=== PATIENT | female | born 1945 | race Caucasian/White ===

== ENCOUNTER 2016-08-18 12:38 | Emergency (ER) | payer MEDICARE ==
[2016-08-18] MEDS ORDERED: MECLIZINE 25 MG TABLET PO ONE (13:01)
[2016-08-18] MEDS ORDERED: IBUPROFEN 400 MG TABLET PO ONE (13:02)
--- NOTE | 2016-08-18 13:07 | Emergency Department Record ---
History of Present Illness - General Chief Complaint: Fall Injury Stated Complaint: dizzy Time Seen by Provider: 08/18/16 12:47 Source: Patient Mode of Arrival: EMS Limitations: No limitations - History of Present Illness Initial Comments: The patient is here due to falling at home an hour ago. She states she has a chronic problem with dizziness and was hurrying to leave her house and was getting dressed to fast when she developed dizziness. It felt like the room was spinning and she then fell backwards onto the edge of her shower door runner injuring her low back. She states she has a long hx of dizziness like this and now it is gone. There was no head injury or trauma and she basically fell down on her buttocks landing on the runner. She denies any GARCIA, CP, SOB, AP, nausea, vomiting, or blurred vision. She takes no anticoagulants. 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 Place Fall Occurred: Home Loss of Consciousness: None Prolonged Down Time?: No Symptoms Prior to Fall: None Severity: Moderate Severity scale (1-10): 8 Quality: Sharp Context: Other Associated Symptoms: Denies - Related Data Home Medications Medication Instructions Recorded Confirmed Last Taken Bupropion HCl [Bupropion HCl Sr] 100 mg PO DAILY 11/08/13 08/18/16 03/06/15 Escitalopram Oxalate [Lexapro] 20 mg PO DAILY 11/08/13 08/18/16 03/06/15 Lansoprazole 30 mg PO DAILY 11/08/13 08/18/16 03/06/15 Ropinirole HCl 0.5 mg PO QHS 11/08/13 08/18/16 03/06/15 Levothyroxine Sodium 250 mcg PO DAILY 12/09/13 08/18/16 03/06/15 Insulin Glargine,Hum.rec.anlog 72 units SQ QHS 03/07/15 08/18/16 03/06/15 [Lantus] Allopurinol [Zyloprim] 100 mg PO DAILY 03/24/16 08/18/16 Unknown Insulin Aspart [Novolog Flexpen] 0 unit SQ ASDIR 03/24/16 08/18/16 Unknown Vit C/Vit E AC/Lut/Copper/Zinc 1 tab PO DAILY 03/24/16 08/18/16 Unknown [PreserVision Lutein Softgel] Previous Rx's Medication Instructions Recorded Amlodipine Besylate [Norvasc] 10 mg PO DAILY #60 tab 03/13/15 Lisinopril/Hydrochlorothiazide 1 each PO DAILY #30 tablet 03/13/15 [Lisinopril-Hctz 20-12.5 mg Tab] Meclizine HCl [Antivert] 25 mg PO Q8H PRN #30 tablet 03/13/15 Allergies Allergy/AdvReac Type Severity Reaction Status Date / Time acetaminophen [ACETAMINOPHEN] Allergy Unknown PT UNSURE Verified 03/24/16 13:07 OF REACTION cephalexin Allergy Unknown PT UNSURE Verified 03/24/16 13:07 OF REACTION ciprofloxacin Allergy Unknown PT UNSURE Verified 03/24/16 13:07 OF REACTION Iodinated Contrast Media - Allergy Unknown PT UNSURE Verified 03/24/16 13:07 Oral and OF REACTION Travel Screening - Travel/Exposure Within Last 30 Days Have you traveled within the last 30 days?: No Review of Systems Constitutional: Denies: Chills, Fever Eyes: Denies: Eye discharge ENT: Denies: Congestion Respiratory: Denies: Cough, Dyspnea Past Medical History - SOCIAL HISTORY Smoking Status: Never smoker Alcohol Use: None Drug Use: None - RESPIRATORY Hx Respiratory Disorders: Yes Hx Asthma: Yes (No medication) Hx Bronchitis: Yes Hx Pulmonary Embolism: No (Mother from [place]) Hx Sleep Apnea: Yes Comment:: Does not wish to use her CPAP while sick - CARDIOVASCULAR Hx Cardio Disorders: Yes Hx Hypertension: Yes - NEURO Hx Neuro Disorders: Yes Hx Brain Tumor: Yes (Dec 22, 1999) Hx Dizziness: Yes Hx Neuropathy: No - GI Hx GI Disorders: Yes Hx Reflux: Yes - Hx Genitourinary Disorders: Yes Hx Bladder Problem: Yes Hx Kidney Stones: Yes Hx UTI: Yes Comment:: urgency - ENDOCRINE Hx Endocrine Disorders: Yes Hx Diabetes: Yes Hx Thyroid Disease: Yes - MUSCULOSKELETAL Hx Musculoskeletal Disorders: Yes Hx Gout: Yes - PSYCH Hx Psych Problems: Yes Hx Depression: Yes - HEMATOLOGY/ONCOLOGY Hx Hematology/Oncology Disorders: No Hx Blood Transfusions: No Family Medical History Any Significant Family History?: Yes Hx Diabetes: Grandparents Hx HTN: Grandparents Hx Kidney Disease: Grandparents *Kidney Comment: Maternal Grandmother Hx Stroke: Mother, Grandparents Physical Exam - General General Appearance: Alert, Oriented x3, Cooperative, No acute distress - Head Head exam: Atraumatic, Normocephalic, Normal inspection - Eye Eye exam: Normal appearance, PERRL - Neck Neck exam: Normal inspection, Full ROM. negative: Tenderness - Respiratory Respiratory exam: Normal lung sounds bilaterally. negative: Respiratory distress - Cardiovascular Cardiovascular Exam: Regular rate, Normal rhythm, Normal heart sounds - GI/Abdominal GI/Abdominal exam: Soft, Normal bowel sounds. negative: Rebound, Rigid, Tenderness - Extremities Extremities exam: Normal inspection, Full ROM, Normal capillary refill. negative: Tenderness - Back Back exam: Reports: Normal inspection, Vertebral tenderness (There is mild lower lumbar tenderness.). Denies: Muscle spasm, Paraspinal tenderness - Neurological Neurological exam: Alert. negative: Motor sensory deficit - Psychiatric Psychiatric exam: negative: Anxious, Depressed Course Vital Signs 08/18/16 12:41 Temperature 98.8 F Pulse Rate 60 Respiratory 20 Rate Blood Pressure 145/85 Pulse Ox 97 - Reevaluation(s) Reevaluation #1: The patient is doing very well at this time. She denies any dizziness, AP or back pain. She is feeling much better. 08/18/16 13:56 Reevaluation #2: The patient is doing much better at this time. She is up walking with no difficulty and is ready for home. 08/18/16 14:20 Medical Decision Making - Data Complexity MDM Data: Labs Ordered and/or Reviewed, X-Ray Ordered and/or Reviewed - Lab Data Result diagrams: 08/18/16 12:00 08/18/16 12:00 - Radiology Data Radiology results: Report reviewed (LS Spine: Neg) Disposition Disposition: Discharge Clinical Impression: Lumbar contusion Qualifiers: Encounter type: initial encounter Qualified Code(s): S30.0XXA - Contusion of lower back and pelvis, initial encounter Disposition: Home, Self-Care Condition: (1) Good Instructions: Fall Prevention for Older Adults (ED), Back Pain (ED) Additional Instructions: Please use your home Meclizine if needed and use Advil for pain. Please see your PCP for recheck next week if not better and return to the ER if worse. Forms: Patient Portal Access Time of Disposition: 14:22
[2016-08-18 13:39] LABS: BASO % 0.4 % (0-6); EOS % 1.8 % (0-6); GRAN % 65.5 % (47-80); HEMATOCRIT 42.3 % (35.0-47.0); LYMPH % 24.2 % (16-45); MEAN CELL VOLUME 85.1 fl (81-97); MEAN CORPUSCULAR HEMOGLOBIN 28.2 pg (27-33); MEAN CORPUSCULAR HGB CONC 33.1 g/dl (32-36); MEAN PLATELET VOLUME 10.9 fl (7.4-10.4); MONO % 8.1 % (0-9); PLATELET COUNT 305 K/uL (130-400); RED BLOOD COUNT 4.97 M/uL (3.80-5.40); RED CELL DISTRIBUTION WIDTH 13.1 % (11.5-14.5); WHITE BLOOD COUNT W/O DIFF 5.6 K/uL (4.2-12.2)
[2016-08-18 13:50] LABS: ANION GAP 10.7 (7-16); BLOOD UREA NITROGEN 19 mg/dL (7-17); CARBON DIOXIDE 20.3 mmol/L (22-30); CREATININE 0.9 mg/dL (0.52-1.04); EST GLOMERULAR FILTRATION RATE > 60 ml/min; GLUCOSE,RANDOM 265 mg/dL (70-110)
== END 2016-08-18 15:09 | disposition home or self-care (01) ==
LOC: ER 12:38
DX: S30.0XXA Contusion of lower back and pelvis, initial encounter (principal); R42 Dizziness and giddiness; E11.9 Type 2 diabetes mellitus without complications; Z79.4 Long term (current) use of insulin; I10 Essential (primary) hypertension; F17.210 Nicotine dependence, cigarettes, uncomplicated; W19.XXXA Unspecified fall, initial encounter; Y92.009 Unspecified place in unspecified non-institutional (private) residence as the place of occurrence of the external cause
CPT/HCPCS: 36416; 72100; 80048; 82948; 85025; 99283; 99284

== ENCOUNTER 2017-02-14 16:54 | Emergency (ER) | payer MEDICARE ==
--- NOTE | 2017-02-14 18:15 | Emergency Department Record ---
History of Present Illness - General Chief complaint: Extremity Problem Stated complaint: KNEE PAIN Time Seen by Provider: 02/14/17 17:51 Source: Patient Mode of Arrival: EMS Limitations: No limitations - History of Present Illness Initial comments: pt was on her computer on a wheeled chair when she tipped over and landed on her buttocks with her l leg bent up underneath her. she was unable to bear wt afterwards and was brought in by ambulance. MD Complaint: Extremity pain, Extremity swelling Onset/Timin -: Hour(s) Location: Left, Knee Severity scale (1-10): 9 Quality: Aching Consistency: Constant Improves with: Rest Worsens with: Walking, Weight bearing Associated Symptoms: Denies other symptoms - Related Data Previous Rx's Medication Instructions Recorded Amlodipine Besylate [Norvasc] 10 mg PO DAILY #60 tab 03/13/15 Lisinopril/Hydrochlorothiazide 1 each PO DAILY #30 tablet 03/13/15 [Lisinopril-Hctz 20-12.5 mg Tab] Meclizine HCl [Antivert] 25 mg PO Q8H PRN #30 tablet 03/13/15 Hydrocodone/Acetaminophen [Gould 0.5 - 1 tab PO TID PRN #7 tab 02/14/17 5mg/325mg] Allergies Allergy/AdvReac Type Severity Reaction Status Date / Time acetaminophen [ACETAMINOPHEN] Allergy Unknown PT UNSURE Verified 02/14/17 17:02 OF REACTION cephalexin Allergy Unknown PT UNSURE Verified 02/14/17 17:02 OF REACTION ciprofloxacin Allergy Unknown PT UNSURE Verified 02/14/17 17:02 OF REACTION Iodinated Contrast- Oral and Allergy Unknown PT UNSURE Verified 02/14/17 17:02 IV Dye OF REACTION [Iodinated Contrast Media - Oral and] Travel Screening - Travel/Exposure Within Last 30 Days Have you traveled within the last 30 days?: No - Travel/Exposure Within Last Year Have you traveled outside the [place] in the last year?: No - Additonal Travel Details Have you been exposed to anyone with a communicable illness?: No - Travel Symptoms Symptom Screening: None Review of Systems Reviewed: No additional complaints except as noted below Constitutional: Reports: As per HPI. Denies: Chills, Fever, Malaise, Night sweats, Weakness, Weight change Eyes: Reports: As per HPI. Denies: Eye discharge, Eye pain, Photophobia, Vision change ENT: Reports: As per HPI. Denies: Congestion, Dental pain, Ear pain, Epistaxis , Hearing loss, Throat pain Respiratory: Reports: As per HPI. Denies: Cough, Dyspnea, Hemoptysis, Stridor, Wheezes Cardiovascular: Reports: As per HPI. Denies: Arrhythmia, Chest pain, Dyspnea on exertion, Edema, Murmurs, Orthopnea, Palpitations, Paroxysmal nocturnal dyspnea, Rheumatic Fever, Syncope Endocrine: Reports: As per HPI. Denies: Fatigue, Heat or cold intolerance, Polydipsia, Polyuria Gastrointestinal: Reports: As per HPI. Denies: Abdominal pain, Constipation, Diarrhea, Hematemesis, Hematochezia, Melena, Nausea, Vomiting Genitourinary: Reports: As per HPI. Denies: Abnormal menses, Discharge, Dyspareunia, Dysuria, Frequency, Hematuria, Incontinence, Retention, Urgency Musculoskeletal: Reports: As per HPI. Denies: Arthralgia, Back pain, Gout, Joint swelling, Myalgia, Neck pain Skin: Reports: As per HPI. Denies: Bruising, Change in color, Change in hair/ nails, Lesions, Pruritus, Rash Neurological: Reports: As per HPI. Denies: Abnormal gait, Confusion, Headache, Numbness, Paresthesias, Seizure, Tingling, Tremors, Vertigo, Weakness Psychiatric: Reports: As per HPI. Denies: Anxiety, Auditory hallucinations, Depression, Homicidal thoughts, Suicidal thoughts, Visual hallucinations Hematological/Lymphatic: Reports: As per HPI. Denies: Anemia, Blood Clots, Easy bleeding, Easy bruising, Swollen glands Past Medical History - SOCIAL HISTORY Smoking Status: Never smoker Alcohol Use: None Drug Use: None - RESPIRATORY Hx Respiratory Disorders: Yes Hx Asthma: Yes (No medication) Hx Bronchitis: Yes Hx Pulmonary Embolism: No (Mother from [place]) Hx Sleep Apnea: Yes Comment:: Does not wish to use her CPAP while sick - CARDIOVASCULAR Hx Cardio Disorders: Yes Hx Hypertension: Yes - NEURO Hx Neuro Disorders: Yes Hx Brain Tumor: Yes (Dec 22, 1999) Hx Dizziness: Yes Hx Neuropathy: No - GI Hx GI Disorders: Yes Hx Reflux: Yes - Hx Genitourinary Disorders: Yes Hx Bladder Problem: Yes Hx Kidney Stones: Yes Hx UTI: Yes Comment:: urgency - ENDOCRINE Hx Endocrine Disorders: Yes Hx Diabetes: Yes Hx Thyroid Disease: Yes - MUSCULOSKELETAL Hx Musculoskeletal Disorders: Yes Hx Gout: Yes - PSYCH Hx Psych Problems: Yes Hx Depression: Yes - HEMATOLOGY/ONCOLOGY Hx Hematology/Oncology Disorders: No Hx Blood Transfusions: No Family Medical History Any Significant Family History?: Yes Hx Diabetes: Grandparents Hx HTN: Grandparents Hx Kidney Disease: Grandparents *Kidney Comment: Maternal Grandmother Hx Stroke: Mother, Grandparents Physical Exam - General General Appearance: Alert, Oriented x3, Cooperative, Mild distress - Head Head exam: Normal inspection - Eye Eye exam: Normal appearance, PERRL, EOMI Pupils: Normal accommodation - ENT ENT exam: Normal exam, Mucous membranes moist, Normal external ear exam, Normal orophraynx Ear exam: Normal external inspection. negative: External canal tenderness Nasal Exam: Normal inspection. negative: Discharge, Sinus tenderness Mouth exam: Normal external inspection, Tongue normal Teeth exam: Normal inspection. negative: Dental caries Throat exam: Normal inspection. negative: Tonsillar erythema, Tonsillar exudate - Neck Neck exam: Normal inspection, Full ROM. negative: Tenderness - Respiratory Respiratory exam: Normal lung sounds bilaterally. negative: Respiratory distress - Cardiovascular Cardiovascular Exam: Regular rate, Normal rhythm, Normal heart sounds - GI/Abdominal GI/Abdominal exam: Soft, Normal bowel sounds. negative: Tenderness - Rectal Rectal exam: Deferred - exam: Deferred - Extremities Extremities exam: Normal inspection, Full ROM, Normal capillary refill, Tenderness - Back Back exam: Reports: Normal inspection, Full ROM. Denies: Muscle spasm, Rash noted, Tenderness - Neurological Neurological exam: Alert, CN II-XII intact, Normal gait, Oriented X3 - Psychiatric Psychiatric exam: Normal affect, Normal mood - Skin Skin exam: Dry, Intact, Normal color, Warm Course Vital Signs 02/14/17 16:56 Temperature 97.5 F L Pulse Rate 58 L Respiratory 16 Rate Blood Pressure 146/73 Pulse Ox 96 Disposition Disposition: Discharge Clinical Impression: Knee MCL sprain Qualifiers: Encounter type: initial encounter Laterality: left Qualified Code(s): S83.412A - Sprain of medial collateral ligament of left knee, initial encounter Disposition: Home, Self-Care Condition: (1) Good Instructions: Knee Sprain (ED), Knee Immobilizer (ED) Additional Instructions: follow up with family doctor. return sooner if worse. ice and elevate Prescriptions: Hydrocodone/Acetaminophen [Gould 5mg/325mg] 0.5 - 1 tab PO TID PRN #7 tab PRN Reason: Pain - General Forms: Patient Portal Access Quality - Quality Measures Quality Measures: N/A - Blood Pressure Screening Does Patient Have Any of the Following: No Blood Pressure Classification: Hypertensive Reading Systolic Measurement: 146 Diastolic Measurement: 73 Screening for High Blood Pressure: < First Hypertensive BP, F/U Documented > [ [id number]] First Hypertensive Follow-up Interventions: Follow-up with rescreen GT 1 day and LT 4 weeks.
[2017-02-14] MEDS: HYDROCODONE/APAP 5/325MG TABLET PO ONE (19:12)
--- NOTE | 2017-02-16 08:07 | RADIOLOGY REPORT ---
DATE: 02/14/2017 at 1813. EXAM: LEFT KNEE, COMPLETE. HISTORY: Pain post trauma. TECHNIQUE: Four views of the left knee. COMPARISON: None. ENCOUNTER: Initial. FINDINGS: There is diffuse osteopenia. No acute fracture, dislocation, or destructive bone lesion is seen. Tricompartmental degenerative changes are identified, moderate to advanced in the medial compartment and mild in the lateral and patellofemoral compartments. There is a borderline joint effusion. IMPRESSION: DIFFUSE OSTEOPENIA. NO CONVINCING ACUTE FRACTURE NOR DISLOCATION. TRICOMPARTMENTAL DEGENERATIVE CHANGES. BORDERLINE JOINT EFFUSION. JOB NUMBER: [id number] MTDD
== END 2017-02-14 19:15 | disposition home or self-care (01) ==
LOC: ER 16:54
DX: S83.412A Sprain of medial collateral ligament of left knee, initial encounter (principal); W07.XXXA Fall from chair, initial encounter
CPT/HCPCS: 99283

== ENCOUNTER 2017-09-02 21:34 | Emergency (ER) | payer MEDICARE ==
--- NOTE | 2017-09-02 21:57 | Emergency Department Record ---
History of Present Illness - General Chief complaint: Vomiting Stated complaint: NAUSEA/VOMITING Time Seen by Provider: 09/02/17 21:39 Source: Patient Mode of Arrival: Ambulatory Limitations: No limitations - History of Present Illness Initial comments: 72 yo female presents with nausea and vomiting since 1am. She has vomited about 4 times today. No fevers. No abdominal pain. No chest, back, or extremity pain. No dizziness or room spinning. She denies and sick contacts. Her last BM was yesterday and was normal. No diarrhea. No blood in her stools or diarrhea. Her PCP is Dr Linn. She reports similar vomiting with vertigo but she has no vertigo. She had a normal heart cath around 5 years ago. MD complaint: Nausea, Vomiting Onset/Timin -: Hour(s) Description of Vomiting: Watery Associated Abdominal Pain: No Location: Other (No abdominal pain) Radiation: None Consistency: Intermittent Improves with: None Worsens with: Vomiting Context: Other Associated Symptoms: Nausea/vomiting - Related Data Previous Rx's Medication Instructions Recorded Amlodipine Besylate [Norvasc] 10 mg PO DAILY #60 tab 03/13/15 Lisinopril/Hydrochlorothiazide 1 each PO DAILY #30 tablet 03/13/15 [Lisinopril-Hctz 20-12.5 mg Tab] Meclizine HCl [Antivert] 25 mg PO Q8H PRN #30 tablet 03/13/15 Ondansetron [Zofran Odt] 4 mg PO Q8H #12 tab.rapdis 09/02/17 Allergies Allergy/AdvReac Type Severity Reaction Status Date / Time acetaminophen [ACETAMINOPHEN] Allergy Unknown PT UNSURE Verified 02/14/17 17:02 OF REACTION cephalexin Allergy Unknown PT UNSURE Verified 02/14/17 17:02 OF REACTION ciprofloxacin Allergy Unknown PT UNSURE Verified 02/14/17 17:02 OF REACTION Iodinated Contrast- Oral and Allergy Unknown PT UNSURE Verified 02/14/17 17:02 IV Dye OF REACTION [Iodinated Contrast Media - Oral and] Travel Screening - Travel/Exposure Within Last 30 Days Have you traveled within the last 30 days?: No - Travel Symptoms Symptom Screening: None Review of Systems Constitutional: Denies: Chills, Fever, Malaise, Weakness Eyes: Denies: Eye discharge ENT: Denies: Congestion, Throat pain Respiratory: Denies: Cough, Dyspnea, Hemoptysis, Wheezes Cardiovascular: Denies: Chest pain, Palpitations, Syncope Endocrine: Denies: Fatigue Gastrointestinal: Reports: Nausea, Vomiting. Denies: Abdominal pain, Constipation, Diarrhea, Hematemesis, Hematochezia, Melena Genitourinary: Denies: Dysuria, Urgency Musculoskeletal: Denies: Arthralgia, Back pain, Joint swelling, Myalgia Skin: Denies: Bruising, Change in color, Rash Neurological: Denies: Headache, Numbness, Weakness Psychiatric: Denies: Anxiety Hematological/Lymphatic: Denies: Easy bleeding, Easy bruising, Swollen glands Past Medical History - SOCIAL HISTORY Smoking Status: Never smoker Drug Use: None - RESPIRATORY Hx Respiratory Disorders: Yes Hx Asthma: Yes (No medication) Hx Bronchitis: Yes Hx Pulmonary Embolism: No (Mother from [place]) Hx Sleep Apnea: Yes Comment:: Does not wish to use her CPAP while sick - CARDIOVASCULAR Hx Cardio Disorders: Yes Hx Hypertension: Yes - NEURO Hx Neuro Disorders: Yes Hx Brain Tumor: Yes (Dec 22, 1999) Hx Dizziness: Yes Hx Neuropathy: No - GI Hx GI Disorders: Yes Hx Reflux: Yes - Hx Genitourinary Disorders: Yes Hx Bladder Problem: Yes Hx Kidney Stones: Yes Hx UTI: Yes Comment:: urgency - ENDOCRINE Hx Endocrine Disorders: Yes Hx Diabetes: Yes Hx Thyroid Disease: Yes - MUSCULOSKELETAL Hx Musculoskeletal Disorders: Yes Hx Gout: Yes - PSYCH Hx Psych Problems: Yes Hx Depression: Yes - HEMATOLOGY/ONCOLOGY Hx Hematology/Oncology Disorders: No Hx Blood Transfusions: No Family Medical History Hx Diabetes: Grandparents Hx HTN: Grandparents Hx Kidney Disease: Grandparents *Kidney Comment: Maternal Grandmother Hx Stroke: Mother, Grandparents Physical Exam - General General Appearance: Alert, Oriented x3, Cooperative, No acute distress, Other ( No acute distress, conversational, well appearing) Limitations: No limitations - Head Head exam: Normal inspection - Eye Eye exam: Normal appearance, PERRL. negative: Conjunctival injection, Scleral icterus - ENT ENT exam: Normal exam, Mucous membranes moist, Normal orophraynx Ear exam: Normal external inspection Nasal Exam: Normal inspection Mouth exam: Normal external inspection Teeth exam: Normal inspection Throat exam: Normal inspection - Neck Neck exam: Normal inspection, Full ROM. negative: Tenderness - Respiratory Respiratory exam: Normal lung sounds bilaterally. negative: Respiratory distress, Rhonchi, Stridor, Wheezes - Cardiovascular Cardiovascular Exam: Regular rate, Normal rhythm, Normal heart sounds Peripheral Pulses: 2+: Radial (R), Radial (L) - GI/Abdominal GI/Abdominal exam: Soft. negative: Distended, Guarding, Rebound, Rigid, Tenderness - Rectal Rectal exam: Deferred - exam: Deferred - Extremities Extremities exam: Normal inspection, Full ROM, Normal capillary refill. negative: Tenderness - Neurological Neurological exam: Alert, Oriented X3 - Psychiatric Psychiatric exam: Normal affect, Normal mood - Skin Skin exam: Dry, Intact, Normal color, Warm Course Vital Signs 09/02/17 21:45 Temperature 97.9 F Pulse Rate 68 Respiratory 20 Rate Blood Pressure 161/90 Pulse Ox 95 - Reevaluation(s) Reevaluation #1: EKG 2202 NSR rate is 63, axis is left, intervals normal, ST no acute changes, poor R wave. NO changes from the prior EKG 03/07/15 09/02/17 22:15 The CBC was reviewed. No acute changes. 09/02/17 22:32 09/02/17 23:25 The labs and UA were reviewed The glucose is 202 No other acute changes. 09/02/17 23:33 The patient is feeling much better She only has very mild nausea Will repeat zofran and trial with PO. No pain 09/03/17 00:01 The patient is doing well She is ready for DC We discussed home care and reasons to return to the ED Medical Decision Making - Lab Data Result diagrams: 09/02/17 22:05 09/02/17 22:05 Disposition Disposition: Discharge Clinical Impression: Nausea & vomiting Disposition: Home, Self-Care Condition: (1) Good Instructions: Acute Nausea and Vomiting (ED) Additional Instructions: Return for a recheck in the next 1-2 days if not improving Return sooner if you vomit, fever, abdominal pain or any new concerns Call your doctor on Monday for a recheck in the office Prescriptions: Ondansetron [Zofran Odt] 4 mg PO Q8H #12 tab.rapdis Forms: Patient Portal Access Time of Disposition: 23:58 Quality - Quality Measures Quality Measures: N/A - Blood Pressure Screening View Details: Yes Does Patient Have Any of the Following: Active Dx of HTN Blood Pressure Classification: Hypertensive Reading Systolic Measurement: 161 Diastolic Measurement: 90 Screening for High Blood Pressure: Patient Exclusion, Hx of HTN [G9504]
[2017-09-02] MEDS: 0.9 % SODIUM CHLORIDE 1,000 ML BAG IV ONE (22:04)
[2017-09-02] MEDS: ONDANSETRON HCL IV 4 MG/2 ML VIAL IVP ONE ×2 (22:05→23:41)
[2017-09-02 22:09] LABS: BASO % 0.3 % (0-6); EOS % 1.3 % (0-6); GRAN % 73.5 % (47-80); HEMATOCRIT 43.1 % (35.0-47.0); HEMOGLOBIN 14.9 gm/dl (11.6-16.0); LYMPH % 16.5 % (16-45); MEAN CELL VOLUME 88.1 fl (81-97); MEAN CORPUSCULAR HEMOGLOBIN 30.5 pg (27-33); MEAN CORPUSCULAR HGB CONC 34.6 g/dl (32-36); MEAN PLATELET VOLUME 10.3 fl (7.4-10.4); MONO % 8.4 % (0-9); PLATELET COUNT 299 K/uL (130-400); RED BLOOD COUNT 4.89 M/uL (3.80-5.40); RED CELL DISTRIBUTION WIDTH 13.4 % (11.5-14.5)
[2017-09-02 22:48] LABS: URINE APPEARANCE CLEAR; URINE BILIRUBIN NEGATIVE (NEGATIVE); URINE BLOOD NEGATIVE (NEGATIVE); URINE COLOR YELLOW; URINE GLUCOSE (UA) NEGATIVE (NEGATIVE); URINE KETONE 15 mg/dL (NEGATIVE); URINE LEUKOCYTE ESTERASE NEGATIVE (NEGATIVE); URINE NITRITE NEGATIVE (NEGATIVE); URINE PROTEIN TRACE (NEGATIVE); URINE UROBILINOGEN 0.2 E.U./dL (0.20 - 1.00)
[2017-09-02 23:17] LABS: ALB/GLOB RATIO 1.1 (1.1-1.8); ALBUMIN 3.9 g/dL (4.0-5.0); BILIRUBIN,TOTAL 0.6 mg/dL (0.2-1.0); TOTAL PROTEIN 7.3 g/dL (6.6-8.7)
[2017-09-02] MEDS ORDERED: ROPINIROLE HCL 1 MG TABLET PO STA (23:41)
[2017-09-03] MEDS: ONDANSETRON 4 MG ODT TABLET SL ONE (00:06)
== END 2017-09-03 00:08 | disposition home or self-care (01) ==
LOC: ER 21:34
DX: R11.2 Nausea with vomiting, unspecified (principal); I10 Essential (primary) hypertension; E11.9 Type 2 diabetes mellitus without complications
CPT/HCPCS: 99284 ×2; 96376; 96374; 85025; 80053; 81003; J2405; J7030

== ENCOUNTER 2018-01-31 21:47 | Emergency (ER) | payer MEDICARE ==
[2018-01-31] MEDS ORDERED: 0.9 % SODIUM CHLORIDE 1000ML 1,000 ML IV ONE (22:02)
[2018-01-31] MEDS ORDERED: ONDANSETRON HCL IV 4 MG/2 ML VIAL IVP ONE (22:02)
--- NOTE | 2018-01-31 22:06 | Emergency Department Record ---
History of Present Illness - General Chief Complaint: Dizziness Stated Complaint: DIZZINESS,VOMITING,CANT EAT DIABETIC Time Seen by Provider: 01/31/18 22:01 Source: Patient Mode of Arrival: Wheelchair Limitations: No limitations - History of Present Illness Initial Comments: 72 yo female presents with nausea and vomiting that started around 10am upon waking this morning. She states the night before she has some increased indigestion but no vomiting. At 10 she tried to eat and began vomiting. No diarrhea. She did have a normal BM today. She has had some waves of abdominal cramps. No back pain. No dysuria. The indigestion comes and goes. She has not been able to keep any PO down today. PCP is Dr Linn. She is a diabetic. Her blood sugar on arrive was 85. MD Complaint: Dizziness, Lightheadedness Onset/Timin -: Days(s) Timing: Unsure Description: Lightheadedness, Nausea History of Same: Yes History of Trauma: Yes Associated Symptoms: Loss of appetite - [place] Coma Scale Eye Response: (4) Open spontaneously Motor Response: (6) Obeys commands Verbal Response: (5) Oriented [place] Total: 15 - Related Data Previous Rx's Medication Instructions Recorded Amlodipine Besylate [Norvasc] 10 mg PO DAILY #60 tab 03/13/15 Lisinopril/Hydrochlorothiazide 1 each PO DAILY #30 tablet 03/13/15 [Lisinopril-Hctz 20-12.5 mg Tab] Meclizine HCl [Antivert] 25 mg PO Q8H PRN #30 tablet 03/13/15 Ondansetron [Zofran Odt] 4 mg PO Q8H #12 tab.rapdis 09/02/17 Ondansetron [Zofran Odt] 4 mg PO Q8H #10 tab.rapdis 02/01/18 Allergies Allergy/AdvReac Type Severity Reaction Status Date / Time acetaminophen [ACETAMINOPHEN] Allergy Unknown PT UNSURE Verified 02/14/17 17:02 OF REACTION cephalexin Allergy Unknown PT UNSURE Verified 02/14/17 17:02 OF REACTION ciprofloxacin Allergy Unknown PT UNSURE Verified 02/14/17 17:02 OF REACTION Iodinated Contrast- Oral and Allergy Unknown PT UNSURE Verified 02/14/17 17:02 IV Dye OF REACTION [Iodinated Contrast Media - Oral and] Travel Screening - Travel/Exposure Within Last 30 Days Have you traveled within the last 30 days?: No - Travel Symptoms Symptom Screening: Vomiting Review of Systems Constitutional: Denies: Chills, Fever, Malaise, Weakness Eyes: Denies: Eye discharge ENT: Denies: Congestion, Throat pain Respiratory: Denies: Cough, Dyspnea, Hemoptysis, Wheezes Cardiovascular: Denies: Chest pain, Palpitations, Syncope Endocrine: Denies: Fatigue, Polyuria Gastrointestinal: Reports: As per HPI, Abdominal pain, Nausea, Vomiting. Denies : Constipation, Diarrhea Genitourinary: Denies: Dysuria, Urgency Musculoskeletal: Denies: Arthralgia, Back pain, Joint swelling, Myalgia Skin: Denies: Bruising, Change in color, Rash Neurological: Reports: Vertigo, Weakness. Denies: Headache Psychiatric: Denies: Anxiety Hematological/Lymphatic: Denies: Blood Clots, Easy bleeding, Easy bruising, Swollen glands Past Medical History - SOCIAL HISTORY Smoking Status: Never smoker Alcohol Use: None Drug Use: None - RESPIRATORY Hx Respiratory Disorders: Yes Hx Asthma: Yes (No medication) Hx Bronchitis: Yes Hx Pulmonary Embolism: No (Mother from [place]) Hx Sleep Apnea: Yes Comment:: Does not wish to use her CPAP while sick - CARDIOVASCULAR Hx Cardio Disorders: Yes Hx Hypertension: Yes - NEURO Hx Neuro Disorders: Yes Hx Brain Tumor: Yes (Dec 22, 1999) Hx Dizziness: Yes Hx Neuropathy: No - GI Hx GI Disorders: Yes Hx Reflux: Yes - Hx Genitourinary Disorders: Yes Hx Bladder Problem: Yes Hx Kidney Stones: Yes Hx UTI: Yes Comment:: urgency - ENDOCRINE Hx Endocrine Disorders: Yes Hx Diabetes: Yes Hx Thyroid Disease: Yes - MUSCULOSKELETAL Hx Musculoskeletal Disorders: Yes Hx Gout: Yes - PSYCH Hx Psych Problems: Yes Hx Depression: Yes - HEMATOLOGY/ONCOLOGY Hx Hematology/Oncology Disorders: No Hx Blood Transfusions: No Family Medical History Any Significant Family History?: Yes Hx Diabetes: Grandparents Hx HTN: Grandparents Hx Kidney Disease: Grandparents *Kidney Comment: Maternal Grandmother Hx Stroke: Mother, Grandparents Physical Exam - General General Appearance: Alert, Oriented x3, Cooperative, No acute distress Limitations: No limitations - Head Head exam: Atraumatic, Normal inspection - Eye Eye exam: Normal appearance. negative: Conjunctival injection, Scleral icterus - ENT ENT exam: Normal exam, Mucous membranes moist, Normal orophraynx. negative: Mucous membranes dry Ear exam: Normal external inspection Nasal Exam: Normal inspection Mouth exam: Normal external inspection Teeth exam: Normal inspection Throat exam: Normal inspection - Neck Neck exam: Normal inspection, Full ROM. negative: Tenderness - Respiratory Respiratory exam: Normal lung sounds bilaterally. negative: Respiratory distress - Cardiovascular Cardiovascular Exam: Regular rate, Normal rhythm, Normal heart sounds Peripheral Pulses: 2+: Radial (R), Radial (L) - GI/Abdominal GI/Abdominal exam: Soft, Tenderness (mild diffuse tenderness but very soft abdomen). negative: Distended, Guarding, Rebound, Rigid - Rectal Rectal exam: Deferred - exam: Deferred - Extremities Extremities exam: Normal inspection, Full ROM, Normal capillary refill. negative: Tenderness - Back Back exam: Reports: Normal inspection, Full ROM. Denies: Muscle spasm, Rash noted, Tenderness - Neurological Neurological exam: Alert, Normal gait, Oriented X3 - Psychiatric Psychiatric exam: Normal affect, Normal mood - Skin Skin exam: Dry, Intact, Normal color, Warm Course Vital Signs 01/31/18 01/31/18 21:55 21:57 Temperature 97.9 F 97.9 F Pulse Rate 62 Pulse Rate [ 67 Pulse Ox Probe] Respiratory 24 20 Rate Blood Pressure 199/86 Blood Pressure 199/86 [Left Arm] Pulse Ox 97 98 - Reevaluation(s) Reevaluation #1: 01/31/18 22:17 EKG EKG #1: 2205 Rate: 59 Rhythm: sinus [place]: left Intervals: normal ST segments: poor R wave progression, no acute changes Prior: no changes from 09/02/17 01/31/18 23:05 The labs were reviewed. No acute changes of the CBC,CMP 01/31/18 23:57 The nausea is well controlled but some pain diffusely continues. 02/01/18 00:19 The UA is negative 02/01/18 00:20 EMR reviewed. September 2017 ED visit for nausea vomiting reviewed. Improved then with DC home. 02/01/18 01:[address] scan from [facility] reviewed. Hiatel hernia otherwise negative. 02/01/18 01:13 No vomiting in the ED. She is trying a PO challenge. 02/01/18 01:35 The patient continues to do well with controlled nausea and no problems with the PO trial She will be DC'd home, close follow up with the PCP, we discussed reasons for immediate return as well Medical Decision Making - Lab Data Result diagrams: 01/31/18 22:05 01/31/18 22:05 Disposition Disposition: Discharge Clinical Impression: Vomiting Qualifiers: Vomiting type: unspecified Vomiting Intractability: unspecified Nausea presence : unspecified Qualified Code(s): R11.10 - Vomiting, unspecified Disposition: Home, Self-Care Condition: (1) Good Instructions: Acute Nausea and Vomiting (ED) Additional Instructions: Call your doctor for the next available follow up appointment Return to the ER for a recheck if worse, any new concerns or questions Take the prescriptions provided as directed Review this ER visit and the tests performed with your family doctor Prescriptions: Ondansetron [Zofran Odt] 4 mg PO Q8H #10 tab.rapdis Forms: Patient Portal Access Time of Disposition: 01:36 Quality - Quality Measures Quality Measures: N/A - Blood Pressure Screening Does Patient Have Any of the Following: Active Dx of HTN Blood Pressure Classification: Hypertensive Reading Systolic Measurement: 147 Diastolic Measurement: 93 Screening for High Blood Pressure: Patient Exclusion, Hx of HTN [G9744]
[2018-01-31 22:16] LABS: BASO % 0.3 % (0-6); EOS % 0.9 % (0-6); GRAN % 67.9 % (47-80); HEMATOCRIT 42.7 % (35.0-47.0); HEMOGLOBIN 14.2 gm/dl (11.6-16.0); LYMPH % 23.2 % (16-45); MEAN CELL VOLUME 87.9 fl (81-97); MEAN CORPUSCULAR HEMOGLOBIN 29.2 pg (27-33); MEAN CORPUSCULAR HGB CONC 33.3 g/dl (32-36); MEAN PLATELET VOLUME 10.2 fl (7.4-10.4); MONO % 7.7 % (0-9); PLATELET COUNT 271 K/uL (130-400); RED BLOOD COUNT 4.86 M/uL (3.80-5.40); RED CELL DISTRIBUTION WIDTH 13.3 % (11.5-14.5); WHITE BLOOD COUNT W/O DIFF 6.3 K/uL (4.2-12.2)
[2018-01-31 22:24] LABS: BLOOD UREA NITROGEN 17 mg/dL (8-23)
[2018-01-31 22:25] LABS: CREATININE 0.8 mg/dL (0.5-0.9); EST GLOMERULAR FILTRATION RATE > 60 mL/min; TOTAL PROTEIN 7.3 g/dL (6.6-8.7)
[2018-01-31 22:27] LABS: GLUCOSE,RANDOM 99 mg/dL (74-109)
[2018-01-31 22:30] LABS: ALB/GLOB RATIO 1.3 (1.1-1.8); ALBUMIN 4.1 g/dL (4.0-5.0); ALKALINE PHOSPHATASE 158 U/L (35-104); ALT/SGPT 10 U/L (<33); AST/SGOT 14 U/L (10.0-35.0); LIPASE 8 U/L (13-60)
[2018-01-31 23:28] LABS: URINE APPEARANCE SL CLOUDY; URINE BILIRUBIN NEGATIVE (NEGATIVE); URINE BLOOD NEGATIVE (NEGATIVE); URINE COLOR YELLOW; URINE GLUCOSE (UA) NEGATIVE (NEGATIVE); URINE KETONE NEGATIVE (NEGATIVE); URINE LEUKOCYTE ESTERASE NEGATIVE (NEGATIVE); URINE NITRITE NEGATIVE (NEGATIVE); URINE PROTEIN NEGATIVE (NEGATIVE); URINE UROBILINOGEN 0.2 E.U./dL (0.20 - 1.00)
[2018-02-01] MEDS ORDERED: ONDANSETRON 4 MG ODT TABLET SL ONE ×2 (01:10→01:35)
--- NOTE | 2018-02-02 14:28 | CT SCAN REPORT ---
DATE: 02/01/2018 at 1215 a.m. EXAM: CT OF THE ABDOMEN AND PELVIS WITHOUT CONTRAST. HISTORY: Epigastric pain with vomiting. Prior appendectomy. TECHNIQUE: Axial CT scan of the abdomen and pelvis was performed without oral or intravenous contrast at the referring physician's request. Preliminary report provided by [facility]. COMPARISON: No prior CT with which to compare. FINDINGS: There is a small hiatal hernia present. No calcified gallstones are seen within the gallbladder. There are two tiny intrarenal calcifications in the left kidney consistent with a couple of tiny, currently nonobstructing intrarenal calculi. Calcifications medial to the right kidney are probably renal arterial in nature. No hydronephrosis or hydroureter is seen on either side with no ureteral calculus seen on either side and no bladder calculus evident. Evaluation of the bowel and viscera is considerably limited without oral or intravenous contrast. Given this limitation, no definite hepatic, splenic, adrenal, renal, or pancreatic mass identified. The pancreas itself appears relatively atrophic. Appendix not identified consistent with the surgical history. No free intraperitoneal air or free intraperitoneal fluid identified. Prominent facet joint arthropathy in the lower lumbar spine with slight anterior subluxation of L4 and L5 which appears to be on the basis of this advanced facet joint arthropathy as well as some degenerative disc disease at this level. Prominent spurring in the lower thoracic spine anteriorly. IMPRESSION: 1. POSTOPERATIVE APPENDECTOMY. 2. SMALL HIATAL HERNIA. 3. A COUPLE OF TINY, CURRENTLY NONOBSTRUCTING INTRARENAL CALCULI WITHIN THE LEFT KIDNEY. NO HYDRONEPHROSIS OR URETERAL CALCULUS ON EITHER SIDE. 4. DEGENERATIVE CHANGES IN THE SPINE. JOB NUMBER: [id number] [facility]
== END 2018-02-01 01:49 | disposition home or self-care (01) ==
LOC: ER 21:47
DX: R11.2 Nausea with vomiting, unspecified (principal); R42 Dizziness and giddiness; R10.13 Epigastric pain; I10 Essential (primary) hypertension; E11.9 Type 2 diabetes mellitus without complications; Z79.4 Long term (current) use of insulin
CPT/HCPCS: 36416; 74176; 80053; 81003; 82948; 83690; 84484; 85025; 93005; 93010; 96361; 96374; 99284; J2405; J7030

== ENCOUNTER 2018-02-03 15:35 | Emergency (ER) | payer MEDICARE ==
--- NOTE | 2018-02-03 16:09 | Emergency Department Record ---
History of Present Illness - General Chief Complaint: Abdominal Pain Stated Complaint: ABD PA IN AND VOMITING Time Seen by Provider: 02/03/18 16:08 Source: Patient, RN notes reviewed, Old records reviewed Mode of Arrival: Ambulatory - History of Present Illness Initial Comments: Reviewed Dr Mulugeta Davis evaluation in the ED 01/31/2018. CT scan of abd and pelvic is negative and labs and urine negative. patient states she is having epigastric abd pain and less painful rendon jan 31 and she vomited last night times one and no dysuria. Onset/Timin -: Days(s) Location: Epigastric Radiation: None Migration to: No migration Severity: Mild Severity scale (1-10): 9 Quality: Aching, Dull Consistency: Constant, Intermittent Improves With: Nothing Worsens With: Rest Associated Symptoms: Vomiting - Related Data Patient : No Hx Age of Menopause: 52 Previous Rx's Medication Instructions Recorded Amlodipine Besylate [Norvasc] 10 mg PO DAILY #60 tab 03/13/15 Lisinopril/Hydrochlorothiazide 1 each PO DAILY #30 tablet 03/13/15 [Lisinopril-Hctz 20-12.5 mg Tab] Meclizine HCl [Antivert] 25 mg PO Q8H PRN #30 tablet 03/13/15 Ondansetron [Zofran Odt] 4 mg PO Q8H #12 tab.rapdis 09/02/17 Sucralfate [Carafate] 1 gm PO QIDACHS #40 tablet 02/03/18 Allergies Allergy/AdvReac Type Severity Reaction Status Date / Time acetaminophen [ACETAMINOPHEN] Allergy Unknown PT UNSURE Verified 02/03/18 15:45 OF REACTION cephalexin Allergy Unknown PT UNSURE Verified 02/03/18 15:45 OF REACTION ciprofloxacin Allergy Unknown PT UNSURE Verified 02/03/18 15:45 OF REACTION Iodinated Contrast- Oral and Allergy Unknown PT UNSURE Verified 02/03/18 15:45 IV Dye OF REACTION [Iodinated Contrast Media - Oral and] Travel Screening - Travel/Exposure Within Last 30 Days Have you traveled within the last 30 days?: No - Travel/Exposure Within Last Year Have you traveled outside the [place] in the last year?: No - Additonal Travel Details Have you been exposed to anyone with a communicable illness?: No - Travel Symptoms Symptom Screening: None Review of Systems Reviewed: No additional complaints except as noted below Constitutional: Reports: As per HPI. Denies: Chills, Fever, Malaise, Night sweats, Weakness, Weight change Eyes: Reports: As per HPI. Denies: Eye discharge, Eye pain, Photophobia, Vision change ENT: Reports: As per HPI. Denies: Congestion, Dental pain, Ear pain, Epistaxis , Hearing loss, Throat pain Respiratory: Reports: As per HPI. Denies: Cough, Dyspnea, Hemoptysis, Stridor, Wheezes Cardiovascular: Reports: As per HPI. Denies: Arrhythmia, Chest pain, Dyspnea on exertion, Edema, Murmurs, Orthopnea, Palpitations, Paroxysmal nocturnal dyspnea, Rheumatic Fever, Syncope Endocrine: Reports: As per HPI. Denies: Fatigue, Heat or cold intolerance, Polydipsia, Polyuria Gastrointestinal: Reports: As per HPI, Abdominal pain. Denies: Constipation, Diarrhea, Hematemesis, Hematochezia, Melena, Nausea, Vomiting Genitourinary: Reports: As per HPI. Denies: Abnormal menses, Discharge, Dyspareunia, Dysuria, Frequency, Hematuria, Incontinence, Retention, Urgency Musculoskeletal: Reports: As per HPI. Denies: Arthralgia, Back pain, Gout, Joint swelling, Myalgia, Neck pain Skin: Reports: As per HPI. Denies: Bruising, Change in color, Change in hair/ nails, Lesions, Pruritus, Rash Neurological: Reports: As per HPI. Denies: Abnormal gait, Confusion, Headache, Numbness, Paresthesias, Seizure, Tingling, Tremors, Vertigo, Weakness Psychiatric: Reports: As per HPI. Denies: Anxiety, Auditory hallucinations, Depression, Homicidal thoughts, Suicidal thoughts, Visual hallucinations Hematological/Lymphatic: Reports: As per HPI. Denies: Anemia, Blood Clots, Easy bleeding, Easy bruising, Swollen glands Past Medical History - SOCIAL HISTORY Smoking Status: Never smoker Alcohol Use: None Drug Use: None - RESPIRATORY Hx Respiratory Disorders: Yes Hx Asthma: Yes (No medication) Hx Bronchitis: Yes Hx Pulmonary Embolism: No (Mother from [place]) Hx Sleep Apnea: Yes Comment:: Does not wish to use her CPAP while sick - CARDIOVASCULAR Hx Cardio Disorders: Yes Hx Hypertension: Yes - NEURO Hx Neuro Disorders: Yes Hx Brain Tumor: Yes (Dec 22, 1999) Hx Dizziness: Yes Hx Neuropathy: No - GI Hx GI Disorders: Yes Hx Reflux: Yes - Hx Genitourinary Disorders: Yes Hx Bladder Problem: Yes Hx Kidney Stones: Yes Hx UTI: Yes Comment:: urgency - ENDOCRINE Hx Endocrine Disorders: Yes Hx Diabetes: Yes Hx Thyroid Disease: Yes - MUSCULOSKELETAL Hx Musculoskeletal Disorders: Yes Hx Gout: Yes - PSYCH Hx Psych Problems: Yes Hx Depression: Yes - HEMATOLOGY/ONCOLOGY Hx Hematology/Oncology Disorders: No Hx Blood Transfusions: No Family Medical History Any Significant Family History?: No Hx Diabetes: Grandparents Hx HTN: Grandparents Hx Kidney Disease: Grandparents *Kidney Comment: Maternal Grandmother Hx Stroke: Mother, Grandparents Physical Exam - General General Appearance: Alert, Oriented x3, Cooperative, No acute distress - Head Head exam: Normal inspection - Eye Eye exam: Normal appearance, PERRL Pupils: Normal accommodation - ENT ENT exam: Normal exam, Mucous membranes moist, Normal external ear exam, Normal orophraynx, TM's normal bilaterally Ear exam: Normal external inspection. negative: External canal tenderness Nasal Exam: Normal inspection. negative: Discharge, Sinus tenderness Mouth exam: Normal external inspection, Tongue normal Teeth exam: Normal inspection. negative: Dental caries Throat exam: Normal inspection. negative: Tonsillar erythema, Tonsillar exudate - Neck Neck exam: Normal inspection, Full ROM. negative: Tenderness - Respiratory Respiratory exam: Normal lung sounds bilaterally. negative: Respiratory distress - Cardiovascular Cardiovascular Exam: Regular rate, Normal rhythm, Normal heart sounds - GI/Abdominal GI/Abdominal exam: Soft, Normal bowel sounds, Tenderness (epigastric pain) - Rectal Rectal exam: Deferred - exam: Deferred - Extremities Extremities exam: Normal inspection, Full ROM, Normal capillary refill. negative: Tenderness - Back Back exam: Reports: Normal inspection, Full ROM. Denies: Muscle spasm, Rash noted, Tenderness - Neurological Neurological exam: Alert, Normal gait, Oriented X3, Reflexes normal - Psychiatric Psychiatric exam: Normal affect, Normal mood - Skin Skin exam: Dry, Intact, Normal color, Warm Course Vital Signs 02/03/18 15:46 Pulse Rate 58 L Respiratory 20 Rate Blood Pressure 171/95 Pulse Ox 96 Medical Decision Making - Lab Data Result diagrams: 02/03/18 16:30 02/03/18 16:30 Disposition Clinical Impression: Abdominal pain Qualifiers: Abdominal location: epigastric Qualified Code(s): R10.13 - Epigastric pain Disposition: Home, Self-Care Condition: (1) Good Instructions: Gastritis (ED) Additional Instructions: follow up with dr. Linn in 2-3 days take prevacid twice a day start carafate one half hour before meals and bed time. stop nsaid drugs ie advil motrin or aleve Prescriptions: Sucralfate [Carafate] 1 gm PO QIDACHS #40 tablet Forms: Patient Portal Access Time of Disposition: 17:17 Quality - Quality Measures Quality Measures: N/A - Blood Pressure Screening Does Patient Have Any of the Following: No, Active Dx of HTN Blood Pressure Classification: Hypertensive Reading Systolic Measurement: 171 Diastolic Measurement: 95 Screening for High Blood Pressure: Patient Exclusion, Hx of HTN [G9744]
[2018-02-03] MEDS ORDERED: 0.9 % SODIUM CHLORIDE 1,000 ML BAG IV ONE ×2 (16:20)
[2018-02-03] MEDS ORDERED: ONDANSETRON HCL IV 4 MG/2 ML VIAL IV ONE (16:20)
[2018-02-03] MEDS ORDERED: MAGNESIUM HYDROXIDE/AL HYDROX 30 ML, LIDOCAINE VISC 2% 15ML 15 ML PO ONE ×2 (16:22)
[2018-02-03 16:59] LABS: BASO % 0.1 % (0-6); EOS % 0.6 % (0-6); GRAN % 75.5 % (47-80); HEMOGLOBIN 14.8 gm/dl (11.6-16.0); LYMPH % 16.8 % (16-45); MEAN CELL VOLUME 86.9 fl (81-97); MEAN CORPUSCULAR HEMOGLOBIN 29.9 pg (27-33); MEAN CORPUSCULAR HGB CONC 34.4 g/dl (32-36); MEAN PLATELET VOLUME 10.8 fl (7.4-10.4); PLATELET COUNT 283 K/uL (130-400); RED BLOOD COUNT 4.95 M/uL (3.80-5.40); RED CELL DISTRIBUTION WIDTH 13.1 % (11.5-14.5); WHITE BLOOD COUNT W/O DIFF 6.9 K/uL (4.2-12.2)
[2018-02-03 17:10] LABS: BLOOD UREA NITROGEN 15 mg/dL (8-23)
[2018-02-03 17:11] LABS: CREATININE 0.9 mg/dL (0.5-0.9); EST GLOMERULAR FILTRATION RATE > 60 mL/min; TOTAL PROTEIN 7.4 g/dL (6.6-8.7)
[2018-02-03 17:13] LABS: GLUCOSE,RANDOM 139 mg/dL (74-109)
[2018-02-03 17:16] LABS: ALBUMIN 4.1 g/dL (4.0-5.0); ALKALINE PHOSPHATASE 160 U/L (35-104); ALT/SGPT 9 U/L (<33); AST/SGOT 17 U/L (10.0-35.0); LIPASE 8 U/L (13-60)
[2018-02-03 17:17] LABS: BILIRUBIN,DIRECT < 0.2 mg/dL (0-0.3)
== END 2018-02-03 17:53 | disposition home or self-care (01) ==
LOC: ER 15:35
DX: R10.13 Epigastric pain (principal); R11.11 Vomiting without nausea; I10 Essential (primary) hypertension; E11.9 Type 2 diabetes mellitus without complications; Z79.4 Long term (current) use of insulin
CPT/HCPCS: 99284 ×2; 96374; 83690; 85025; 80076; 80048; J2405; J7030

== ENCOUNTER 2018-04-04 17:43 | Emergency (ER) | payer MEDICARE ==
--- NOTE | 2018-04-04 17:56 | Emergency Department Record ---
History of Present Illness - General Chief complaint: Hypogylcemia Stated complaint: LOW BLOOD SUGAR Time Seen by Provider: 04/04/18 17:49 Source: Patient Mode of Arrival: EMS Limitations: No limitations - History of Present Illness Initial comments: 72 yo female presents to ED for evaluation for low blood sugar this evening. EMS reports that the patient called a friend with confusion, EMS was contacted and the patient was found to have blood sugar of 36. Patient was given oral glucose without improvement in her symptoms, was given 1/2 amp of D50. Patient denies change in her insulin dosing, but reports decreased appetite "for two years". MD Complaint: Generalized weakness Onset/Timin -: Hour(s) Location: Generalized Severity: Moderate Consistency: Now resolved Improves with: Other (glucose) Worsens with: None Associated Symptoms: Denies other symptoms - [place] Coma Scale Eye Response: (4) Open spontaneously Motor Response: (6) Obeys commands Verbal Response: (5) Oriented [place] Total: 15 - Related Data Previous Rx's Medication Instructions Recorded Amlodipine Besylate [Norvasc] 10 mg PO DAILY #60 tab 03/13/15 Lisinopril/Hydrochlorothiazide 1 each PO DAILY #30 tablet 03/13/15 [Lisinopril-Hctz 20-12.5 mg Tab] Meclizine HCl [Antivert] 25 mg PO Q8H PRN #30 tablet 03/13/15 Ondansetron [Zofran Odt] 4 mg PO Q8H #12 tab.rapdis 09/02/17 Sucralfate [Carafate] 1 gm PO QIDACHS #40 tablet 02/03/18 Allergies Allergy/AdvReac Type Severity Reaction Status Date / Time acetaminophen [ACETAMINOPHEN] Allergy Unknown PT UNSURE Verified 04/04/18 18:00 OF REACTION cephalexin Allergy Unknown PT UNSURE Verified 04/04/18 18:00 OF REACTION ciprofloxacin Allergy Unknown PT UNSURE Verified 04/04/18 18:00 OF REACTION Iodinated Contrast- Oral and Allergy Unknown PT UNSURE Verified 04/04/18 18:00 IV Dye OF REACTION [Iodinated Contrast Media - Oral and] Review of Systems Constitutional: Denies: Chills, Fever, Malaise, Night sweats Eyes: Denies: Eye discharge, Eye pain ENT: Denies: Congestion, Ear pain, Epistaxis Respiratory: Denies: Cough, Dyspnea Cardiovascular: Denies: Chest pain, Dyspnea on exertion Endocrine: Denies: Fatigue, Heat or cold intolerance Gastrointestinal: Denies: Abdominal pain, Nausea, Vomiting Genitourinary: Denies: Incontinence, Retention Musculoskeletal: Denies: Arthralgia, Back pain Skin: Denies: Bruising, Change in color Neurological: Reports: Confusion. Denies: Abnormal gait, Headache, Tingling, Tremors Psychiatric: Denies: Anxiety Hematological/Lymphatic: Denies: Anemia, Blood Clots Past Medical History - SOCIAL HISTORY Smoking Status: Never smoker Drug Use: None - RESPIRATORY Hx Respiratory Disorders: Yes Hx Asthma: Yes (No medication) Hx Bronchitis: Yes Hx Pulmonary Embolism: No (Mother from [place]) Hx Sleep Apnea: Yes Comment:: Does not wish to use her CPAP while sick - CARDIOVASCULAR Hx Cardio Disorders: Yes Hx Hypertension: Yes - NEURO Hx Neuro Disorders: Yes Hx Brain Tumor: Yes (Dec 22, 1999) Hx Dizziness: Yes Hx Neuropathy: No - GI Hx GI Disorders: Yes Hx Reflux: Yes - Hx Genitourinary Disorders: Yes Hx Bladder Problem: Yes Hx Kidney Stones: Yes Hx UTI: Yes Comment:: urgency - ENDOCRINE Hx Endocrine Disorders: Yes Hx Diabetes: Yes Hx Thyroid Disease: Yes - MUSCULOSKELETAL Hx Musculoskeletal Disorders: Yes Hx Gout: Yes - PSYCH Hx Psych Problems: Yes Hx Depression: Yes - HEMATOLOGY/ONCOLOGY Hx Hematology/Oncology Disorders: No Hx Blood Transfusions: No Family Medical History Hx Diabetes: Grandparents Hx HTN: Grandparents Hx Kidney Disease: Grandparents *Kidney Comment: Maternal Grandmother Hx Stroke: Mother, Grandparents Physical Exam - General General Appearance: Alert, Oriented x3, Cooperative, Other (Symptoms now resolved) Limitations: No limitations - Head Head exam: Atraumatic, Normocephalic, Normal inspection Head exam detail: negative: Abrasion, Contusion, Dominguez's sign, General tenderness, Hematoma, Laceration - Eye Eye exam: Normal appearance. negative: Conjunctival injection, Periorbital swelling, Periorbital tenderness, Scleral icterus - ENT Ear exam: negative: Auricular hematoma, Auricular trauma Nasal Exam: negative: Active bleeding, Discharge, Dried blood, Foreign body Mouth exam: negative: Drooling, Laceration, Muffled voice, Tongue elevation - Neck Neck exam: Normal inspection. negative: Meningismus, Tenderness - Respiratory Respiratory exam: Normal lung sounds bilaterally. negative: Chest wall tenderness, Rhonchi, Wheezes - Cardiovascular Cardiovascular Exam: Regular rate, Normal rhythm, Normal heart sounds - GI/Abdominal GI/Abdominal exam: Soft. negative: Rebound, Rigid, Tenderness - Rectal Rectal exam: Deferred - exam: Deferred - Extremities Extremities exam: Normal inspection. negative: Calf tenderness, Pedal edema, Tenderness - Back Back exam: Denies: CVA tenderness (R), CVA tenderness (L) - Neurological Neurological exam: Alert, Normal gait, Oriented X3 - Psychiatric Psychiatric exam: Normal affect, Normal mood - Skin Skin exam: Normal color. negative: Abrasion Type of lesion: negative: abrasion Course - Reevaluation(s) Reevaluation #1: 04/04/18 18:42 Laboratory studies were reviewed and are grossly unremarkable for an acute process. Reevaluation #2: 04/04/18 19:05 repeat Accu check 103, will perform PO trial, ambulation trial, and reassess. Reevaluation #3: 04/04/18 19:41 Patient ate sandwich and banana without difficulty, will attempt ambulation trial. Reevaluation #4: 04/04/18 20:11 Patient ambulated with steady gait using walker (uses walker at her baseline), will recheck glucose at this time. Reevaluation #5: 04/04/18 20:24 Repeat Accu check 140. Patient appears stable for discharge at this time. Medical Decision Making - Lab Data Result diagrams: 04/04/18 17:41 04/04/18 17:41 Disposition Disposition: Discharge Clinical Impression: Hypoglycemia Disposition: Home, Self-Care Condition: (2) Stable Instructions: Hypoglycemia in a Person with Diabetes (ED) Additional Instructions: Return to ED if your symptoms worsen or if you have any concerns. Follow-up with Dr. Linn in 1-3 days as directed. Forms: Patient Portal Access Time of Disposition: 20:13 Quality - Quality Measures Quality Measures: N/A - Blood Pressure Screening Does Patient Have Any of the Following: Active Dx of HTN Blood Pressure Classification: Hypertensive Reading Systolic Measurement: 153 Diastolic Measurement: 72 Screening for High Blood Pressure: Patient Exclusion, Hx of HTN [G9744]
[2018-04-04 18:16] LABS: BASO % 0.2 % (0-6); EOS % 0.8 % (0-6); GRAN % 73.9 % (47-80); HEMATOCRIT 49.6 % (35.0-47.0); HEMOGLOBIN 16.2 gm/dl (11.6-16.0); LYMPH % 19.9 % (16-45); MEAN CELL VOLUME 88.4 fl (81-97); MEAN CORPUSCULAR HEMOGLOBIN 28.8 pg (27-33); MEAN CORPUSCULAR HGB CONC 32.7 g/dl (32-36); MEAN PLATELET VOLUME 10.9 fl (7.4-10.4); MONO % 5.2 % (0-9); PLATELET COUNT 356 K/uL (130-400); RED BLOOD COUNT 5.61 M/uL (3.80-5.40); RED CELL DISTRIBUTION WIDTH 14.8 % (11.5-14.5); WHITE BLOOD COUNT W/O DIFF 8.9 K/uL (4.2-12.2)
[2018-04-04 18:27] LABS: BILIRUBIN,TOTAL 0.3 mg/dL (0.2-1.0)
[2018-04-04 18:28] LABS: TOTAL PROTEIN 8.4 g/dL (6.6-8.7)
[2018-04-04 18:33] LABS: ALB/GLOB RATIO 1.2 (1.1-1.8); ALBUMIN 4.5 g/dL (4.0-5.0)
== END 2018-04-04 20:56 | disposition home or self-care (01) ==
LOC: ER 17:43
DX: E11.649 Type 2 diabetes mellitus with hypoglycemia without coma (principal); R41.0 Disorientation, unspecified; R53.1 Weakness; I10 Essential (primary) hypertension; Z79.4 Long term (current) use of insulin
CPT/HCPCS: 36416; 80053; 82948; 85025; 99283; 99284

== ENCOUNTER 2018-05-10 19:58 | Observation (INO) | payer MEDICARE ==
[2018-05-10 20:27] LABS: BASO % 0.1 % (0-6); EOS % 0.4 % (0-6); GRAN % 78.1 % (47-80); HEMATOCRIT 44.2 % (35.0-47.0); HEMOGLOBIN 14.9 gm/dl (11.6-16.0); LYMPH % 14.7 % (16-45); MEAN CELL VOLUME 89.3 fl (81-97); MEAN CORPUSCULAR HEMOGLOBIN 30.1 pg (27-33); MEAN CORPUSCULAR HGB CONC 33.7 g/dl (32-36); MEAN PLATELET VOLUME 10.9 fl (7.4-10.4); MONO % 6.7 % (0-9); PLATELET COUNT 257 K/uL (130-400); RED BLOOD COUNT 4.95 M/uL (3.80-5.40); RED CELL DISTRIBUTION WIDTH 15.2 % (11.5-14.5); WHITE BLOOD COUNT W/O DIFF 6.7 K/uL (4.2-12.2)
[2018-05-10 20:36] LABS: BLOOD UREA NITROGEN 14 mg/dL (8-23); CREATININE 0.9 mg/dL (0.5-0.9); EST GLOMERULAR FILTRATION RATE > 60 mL/min; TOTAL PROTEIN 7.1 g/dL (6.6-8.7)
--- NOTE | 2018-05-10 20:36 | Emergency Department Record ---
History of Present Illness - General Chief complaint: Hypogylcemia Stated complaint: LOW BLOOD SUGAR Time Seen by Provider: 05/10/18 20:04 Source: Patient Mode of Arrival: EMS Limitations: No limitations - History of Present Illness Initial comments: The patient is here due to being found on the floor tonight with low blood sugar. She may have been on the floor for 12 hours and last talked to family at 6am today. The patient states she has been having increasing issues with low blood sugar recently but denies any change in her insulin schedule. She did receive 2 doses of oral glucose and an amp of D50 by EMS. The patient also denies any recent illnesses, injuries, vomiting, diarrhea or fever. She does state she has not been eating well recently and also had an issues with low blood sugar last week but was taken care of by family. MD Complaint: Generalized weakness Onset/Timin -: Days(s) Severity scale (1-10): 8 Quality: Aching Consistency: Constant - [place] Coma Scale Eye Response: (4) Open spontaneously Motor Response: (6) Obeys commands Verbal Response: (5) Oriented [place] Total: 15 - Related Data Home Medications Medication Instructions Recorded Confirmed Last Taken Amlodipine Besylate [Norvasc] 2.5 mg PO DAILY 05/10/18 05/10/18 Unknown Lisinopril [Zestril] 5 mg PO DAILY 05/10/18 05/10/18 Unknown Previous Rx's Medication Instructions Recorded Meclizine HCl [Antivert] 25 mg PO Q8H PRN #30 tablet 03/13/15 Allergies Allergy/AdvReac Type Severity Reaction Status Date / Time acetaminophen [ACETAMINOPHEN] Allergy Unknown PT UNSURE Verified 04/04/18 18:00 OF REACTION cephalexin Allergy Unknown PT UNSURE Verified 04/04/18 18:00 OF REACTION ciprofloxacin Allergy Unknown PT UNSURE Verified 04/04/18 18:00 OF REACTION Iodinated Contrast- Oral and Allergy Unknown PT UNSURE Verified 04/04/18 18:00 IV Dye OF REACTION [Iodinated Contrast Media - Oral and] Travel Screening - Travel/Exposure Within Last 30 Days Have you traveled within the last 30 days?: No - Travel Symptoms Symptom Screening: None Review of Systems Constitutional: Denies: Chills, Fever Eyes: Denies: Eye discharge ENT: Denies: Congestion Respiratory: Denies: Cough, Dyspnea Cardiovascular: Denies: Chest pain Endocrine: Reports: Fatigue Gastrointestinal: Denies: Nausea Genitourinary: Denies: Dysuria Musculoskeletal: Denies: Back pain Skin: Denies: Bruising Neurological: Reports: Confusion. Denies: Headache Past Medical History - SOCIAL HISTORY Smoking Status: Never smoker Alcohol Use: None Drug Use: None - RESPIRATORY Hx Respiratory Disorders: Yes Hx Asthma: Yes (No medication) Hx Bronchitis: Yes Hx Pulmonary Embolism: No (Mother from [place]) Hx Sleep Apnea: Yes Comment:: Does not wish to use her CPAP while sick - CARDIOVASCULAR Hx Cardio Disorders: Yes Hx Hypertension: Yes - NEURO Hx Neuro Disorders: Yes Hx Brain Tumor: Yes (Dec 22, 1999) Hx Dizziness: Yes Hx Neuropathy: No - GI Hx GI Disorders: Yes Hx Reflux: Yes - Hx Genitourinary Disorders: Yes Hx Bladder Problem: Yes Hx Kidney Stones: Yes Hx UTI: Yes Comment:: urgency - ENDOCRINE Hx Endocrine Disorders: Yes Hx Diabetes: Yes Hx Thyroid Disease: Yes - MUSCULOSKELETAL Hx Musculoskeletal Disorders: Yes Hx Gout: Yes - PSYCH Hx Psych Problems: Yes Hx Depression: Yes - HEMATOLOGY/ONCOLOGY Hx Hematology/Oncology Disorders: No Hx Blood Transfusions: No Family Medical History Any Significant Family History?: Yes Hx Diabetes: Grandparents Hx HTN: Grandparents Hx Kidney Disease: Grandparents *Kidney Comment: Maternal Grandmother Hx Stroke: Mother, Grandparents Physical Exam - General General Appearance: Alert, Oriented x3, Cooperative, No acute distress - Head Head exam: Atraumatic, Normocephalic, Normal inspection - Eye Eye exam: Normal appearance, PERRL, EOMI - ENT Throat exam: Normal inspection. negative: Tonsillar erythema, Tonsillar exudate - Neck Neck exam: Normal inspection, Full ROM. negative: Tenderness - Respiratory Respiratory exam: Normal lung sounds bilaterally, Chest wall tenderness (There is mild R latera rib tenderness.). negative: Respiratory distress - Cardiovascular Cardiovascular Exam: Regular rate, Normal rhythm, Normal heart sounds - GI/Abdominal GI/Abdominal exam: Soft, Normal bowel sounds. negative: Tenderness - Extremities Extremities exam: negative: Normal inspection (There is mild erythema over the anterior knees R>L but no swelling, or tenderness.) - Back Back exam: Reports: Normal inspection - Neurological Neurological exam: Alert, Oriented X3. negative: Altered, Motor sensory deficit - Psychiatric Psychiatric exam: negative: Depressed - Skin Skin exam: negative: Rash Course Vital Signs 05/10/18 20:03 Temperature 98.5 F Pulse Rate 100 H Respiratory 16 Rate Blood Pressure 195/84 Pulse Ox 95 - Reevaluation(s) Reevaluation #1: The patient is doing very well at this time. She denies any pain or discomfort and she is answering all questions appropriately. We are waiting on her lab and xray results. 05/10/18 21:17 Reevaluation #2: The patient is doing OK at this time. Her lab work and xrays are basically all WNL's. She was mildly dizzy when she got up to the cammode and had no focal weakness or pain. I did discuss the need to stay overnight and the patient did agree. We will hold her diabetes meds and re-evaluate in the AM. 05/10/18 21:58 Medical Decision Making - Data Complexity MDM Data: Labs Ordered and/or Reviewed, X-Ray Ordered and/or Reviewed, EKG Ordered and/or Reviewed - Lab Data Result diagrams: 05/10/18 20:20 05/10/18 20:20 Lab Results 05/10/18 05/10/18 Range/Units 20:20 20:21 WBC 6.7 (4.2-12.2) K/uL RBC 4.95 (3.80-5.40) M/uL Hgb 14.9 (11.6-16.0) gm/dl Hct 44.2 (35.0-47.0) % MCV 89.3 (81-97) fl MCH 30.1 (27-33) pg MCHC 33.7 (32-36) g/dl RDW 15.2 H (11.5-14.5) % Plt Count 257 (130-400) K/uL MPV 10.9 H (7.4-10.4) fl Gran % 78.1 (47-80) % Lymphocytes % 14.7 L (16-45) % Monocytes % 6.7 (0-9) % Eosinophils % 0.4 (0-6) % Basophils % 0.1 (0-6) % Creatine Kinase Cancelled - EKG Data -: EKG Interpreted by Wy EKG: No Acute Changes (No significant changes compared to old. Prolonged QT on todays EKG.) - Radiology Data Radiology results: Report reviewed (CXR and R Ribs: Neg for any acute changes. Head CT: Neg for acute changes, multiple chronic findings.) Disposition Disposition: Admit Clinical Impression: Hypoglycemia Disposition: Still a Patient at [facility] Decision to Admit: Admit from ER Decision to Admit Date: 05/10/18 Decision to Admit Time: 22:01 Accepting Physician: Mary Kate Time Discussed w/Accepting Physician: 22:01 Condition: (2) Stable Forms: Patient Portal Access Time of Disposition: 22:01 Quality - Quality Measures Quality Measures: N/A - Blood Pressure Screening View Details: Yes Does Patient Have Any of the Following: No Blood Pressure Classification: Pre-Hypertensive BP Reading Systolic Measurement: 195 Diastolic Measurement: 84 Screening for High Blood Pressure: < Pre-Hypertensive BP, F/U Documented > [ [id number]] Pre-Hypertensive Follow-up Interventions: Referral to alternative/primary care provider.
[2018-05-10 20:38] LABS: GLUCOSE,RANDOM 132 mg/dL (74-109)
[2018-05-10 20:41] LABS: ALB/GLOB RATIO 1.2 (1.1-1.8); ALBUMIN 3.8 g/dL (4.0-5.0); ALKALINE PHOSPHATASE 162 U/L (45-87); ALT/SGPT 20 U/L (<33); AST/SGOT 28 U/L (10.0-35.0); CREATINE PHOSPHOKINASE 442 U/L (26-192)
[2018-05-10 21:48] LABS: URINE APPEARANCE CLEAR; URINE BILIRUBIN NEGATIVE (NEGATIVE); URINE BLOOD NEGATIVE (NEGATIVE); URINE COLOR YELLOW; URINE KETONE TRACE (NEGATIVE); URINE LEUKOCYTE ESTERASE NEGATIVE (NEGATIVE); URINE NITRITE NEGATIVE (NEGATIVE); URINE PROTEIN TRACE (NEGATIVE); URINE UROBILINOGEN 0.2 E.U./dL (0.20 - 1.00)
[2018-05-10] MEDS ORDERED: 0.9 % SODIUM CHLORIDE 1000ML 1,000 ML IV PRN (22:52)
[2018-05-10] MEDS ORDERED: MECLIZINE 25 MG TABLET PO PRN (22:52)
[2018-05-10] MEDS: ROPINIROLE HCL 1 MG TABLET PO SCH (23:21)
[2018-05-11 03:30] LABS: BLOOD UREA NITROGEN 13 mg/dL (8-23); CREATININE 0.9 mg/dL (0.5-0.9); EST GLOMERULAR FILTRATION RATE > 60 mL/min; GLUCOSE,RANDOM 139 mg/dL (74-109)
[2018-05-11 03:32] LABS: BASO % 0.2 % (0-6); EOS % 0.9 % (0-6); GRAN % 67.1 % (47-80); HEMATOCRIT 41.7 % (35.0-47.0); HEMOGLOBIN 14.2 gm/dl (11.6-16.0); LYMPH % 24.4 % (16-45); MEAN CELL VOLUME 88.5 fl (81-97); MEAN CORPUSCULAR HEMOGLOBIN 30.1 pg (27-33); MEAN CORPUSCULAR HGB CONC 34.1 g/dl (32-36); MEAN PLATELET VOLUME 11.1 fl (7.4-10.4); MONO % 7.4 % (0-9); PLATELET COUNT 250 K/uL (130-400); RED BLOOD COUNT 4.71 M/uL (3.80-5.40); RED CELL DISTRIBUTION WIDTH 14.9 % (11.5-14.5); WHITE BLOOD COUNT W/O DIFF 6.6 K/uL (4.2-12.2)
[2018-05-11] MEDS: PANTOPRAZOLE SODIUM 40 MG TABLET PO SCH (06:53)
[2018-05-11] MEDS ORDERED: LEVOTHYROXINE SODIUM 75 MCG TABLET PO SCH (07:00)
--- NOTE | 2018-05-11 07:18 | RADIOLOGY REPORT ---
EXAM: RIGHT RIBS WITH PA CHEST HISTORY: RIGHT RIB PAIN POST FALL. TECHNIQUE: AP and oblique views of the right ribs are obtained along with a PA view of the chest. Comparison: Bilateral ribs with PA chest dated 09/07/15. FINDINGS: The examination is mildly limited by body habitus with the lower right ribs not optimally visualized. There is normal bone mineralization. No convincing acute right rib fracture. No lytic or blastic bone lesion. The heart is not enlarged and the pulmonary vasculature is nondilated. The thoracic aorta is mildly tortuous and atherosclerotic. There is calcification noted adjacent to the posterior superior margin of the greater tuberosity of the right humerus consistent with calcific tendinosis. This is slightly more pronounced than on the 2016 examination. IMPRESSION: 1. NO DEFINITE ACUTE RIGHT RIB FRACTURE. 2. NO EVIDENCE OF ACUTE CARDIOPULMONARY DISEASE. 3. CALCIFIC TENDINOSIS OF THE RIGHT ROTATOR CUFF AGAIN SUGGESTED. JOB NUMBER: [id number] MTDD
[2018-05-11] MEDS ORDERED: NAPROXEN 250 MG TABLET PO PRN (07:20)
[2018-05-11] MEDS ORDERED: HYDRALAZINE 20MG/ML VIAL IV PRN (07:23)
--- NOTE | 2018-05-11 07:31 | CT SCAN REPORT ---
EXAM: CT OF THE BRAIN WITHOUT CONTRAST HISTORY: FALL. TECHNIQUE: Routine noncontrast CT of the brain was obtained. Comparison: CT of the brain without contrast dated 03/07/15. FINDINGS: There are again noted right temporal craniotomy changes. There is redemonstration of an area of lucency in the expected region of the tip at the right temporal lobe consistent with encephalomalacia and chronic benign extraaxial fluid. This is stable. The subarachnoid spaces remain mildly dilated. The ventricles are not enlarged. There is redemonstration of a small area of encephalomalacia in the inferolateral right frontal lobe, stable. New since the prior examination is an area of CSF like density within the parasagittal right frontal lobe associated with volume loss measuring 1.2 x 1.3 x 1.5 cm consistent with encephalomalacia likely from old infarct. There is a tiny focus of hypodensity along the posterolateral margin of the left thalamus and another near the lateral margin of the right thalamus consistent with prominent perivascular spaces or old lacunar infarcts. These were not well seen on the prior examination. No other area of abnormally increased or decreased attenuation is noted throughout the brain substance. There is redemonstration of a well circumscribed dural base mass in the lateral inferior left frontal region. This measures 11 mm in diameter and 7 mm in thickness. It is partially calcified. On the prior examination it measured approximately 9 x 5 mm though the current imaging is superior. This is consistent with a partially calcified meningioma. No acute extraaxial fluid collection. No acute skull fracture. There is mild mucosal thickening within the maxillary sinuses, multiple bilateral ethmoid air cells, sphenoid sinuses, and within the inferior aspects of hypoplastic frontal sinuses. Inflammatory debris within the left sphenoid sinus. IMPRESSION: 1. NO CT EVIDENCE OF ACUTE MAJOR VESSEL INFARCT, INTRACRANIAL HEMORRHAGE, NOR SKULL FRACTURE. 2. POST SURGICAL CHANGES AGAIN NOTED IN THE RIGHT FRONTAL TEMPORAL REGION ASSOCIATED WITH AREAS OF ENCEPHALOMALACIA IN THE RIGHT TEMPORAL LOBE AND INFEROLATERAL RIGHT FRONTAL LOBE. 3. SMALL NEW AREA OF ENCEPHALOMALACIA IN THE PARAMEDIAN RIGHT FRONTAL LOBE. 4. PROMINENT PERIVASCULAR SPACES VERSUS OLD LACUNAR INFARCTS AT THE LATERAL MARGINS OF THE THALAMI NOT WELL SEEN ON THE PRIOR EXAMINATION. 5. PARTIALLY CALCIFIED MENINGIOMA IN THE LATERAL INFERIOR LEFT FRONTAL REGION APPEARING SLIGHTLY LARGER THAN ON THE PRIOR EXAMINATION THOUGH NO GROSS MASS EFFECT. 6. PRIMARILY CHRONIC APPEARING INFLAMMATORY CHANGES OF MULTIPLE PARANASAL SINUSES AND INFLAMMATORY DEBRIS WITHIN THE LEFT SPHENOID SINUS. JOB NUMBER: [id number] MTDD
[2018-05-11] MEDS: ESCITALOPRAM 10 MG TABLET PO SCH (09:11)
[2018-05-11] MEDS: AMLODIPINE BESYLATE 5MG TAB PO SCH (09:11)
[2018-05-11] MEDS: ALLOPURINOL 100 MG TAB PO SCH (09:11)
[2018-05-11] MEDS: BUPROPION HCL 100 MG PO SCH (09:12)
[2018-05-11] MEDS: LISINOPRIL 5 MG TABLET PO SCH (09:12)
--- NOTE | 2018-05-11 16:59 | History & Physical ---
History of Present Illness - Date of Service Date of Service for History & Physical: 05/11/18 - History of Present Illness Admitting Diagnosis: 1. Acute Persistent Hypoglycemia with Diabetes. History of Present Illness: Chelsey Cassidy is a 73 y.o. F who was brought to the [facility] ED on the evening of 05/10/18 by ambulance d/t hypoglycemia and weakness. Had been found on the floor by her family in her home. Stated that she believes she was on the floor for approximately 24 hours. States that she fell out of bed when trying to get up, but doesn't recall what actually happened. Doesn't know if she hit her or remember being dizzy but does report that she believes she was dehydrated because she had been fasting for 16 hours recently for blood work. Does have problems with dizziness d/t BPPV which was diagnosed in 2014. Reports that she has had an echocardiogram and a stress test that was "perfectly clear" nearly 18 years ago. Was recently diagnosed with stomach ulcers for which she is receiving Protonix. Had been given 2 doses of oral glucose and an amp of D50 by EMS prior to arrival to the ED. Believes that she heard them say her glucose level was 35 when she was found. Pt reported that she has been having frequent low blood glucose levels over the last week but has not had any changes in her insulin schedule. Normally injects 30 units of Novolog with each meal as well as 72 units of Lantus at night but states that she hasn't had any insulin since Monday night. Doesn't check her blood glucose with every meal at home but usually at least twice a day. Frequently has blood glucose levels in the 50s when she gets up in the morning. Diabetes is managed by [facility] and special educator from the [facility]. PMHx includes IDDM, HTN, BPPV, NINOSKA, hx of benign meningioma and osteoarthritis. PCP: Dr. Herve Linn ED Course: VS: T 98.5, HR 100, RR 16, BP 195/84, SpO2 95% on RA EKG: Sinus bradycardia, no significant changes compared to previous EKG Head CT: No acute changes CXR: No rib fractures, no cardiopulmonary disease Glucose: 132, Creatinine 0.9, Troponin <0.010 05/11/18: Reports pain in bilateral knees, 11/10. States that she normally has some knee stiffiness and discomfort d/t OA but has significant discomfort. Believes that the knee pain is r/t the fall and wonders if she may have fallen on her knees. Denies having any dizziness or shakiness today. One episode of nausea but believes it was r/t drinking cranberry juice, which she doesn't particularly care for. Feels weak and lives alone. Travel Screening - Travel/Exposure Within Last 30 Days Have you traveled within the last 30 days?: No - Travel/Exposure Within Last Year Have you traveled outside the [place] in the last year?: No - Additonal Travel Details Have you been exposed to anyone with a communicable illness?: No - Travel Symptoms Symptom Screening: None Review of Systems Constitutional: Reports: Weakness. Denies: Chills, Fever Eyes: Denies: Photophobia, Vision change ENT: Denies: Congestion Respiratory: Denies: Cough, Dyspnea Cardiovascular: Denies: Chest pain, Dyspnea on exertion, Edema, Murmurs, Palpitations Endocrine: Reports: Fatigue Gastrointestinal: Denies: Abdominal pain, Constipation, Diarrhea, Nausea, Vomiting Genitourinary: Denies: Dysuria, Hematuria Musculoskeletal: Reports: Arthralgia (bilateral knees). Denies: Back pain Skin: Denies: Bruising Neurological: Reports: Vertigo. Denies: Headache, Numbness Hematological/Lymphatic: Denies: Anemia, Blood Clots Past Medical History - SOCIAL HISTORY Smoking Status: Never smoker Alcohol Use: None Drug Use: None - RESPIRATORY Hx Respiratory Disorders: Yes Hx Asthma: Yes (No medication) Hx Bronchitis: Yes Hx Pulmonary Embolism: No (Mother from [place]) Hx Sleep Apnea: Yes Comment:: Does not wish to use her CPAP while sick - CARDIOVASCULAR Hx Cardio Disorders: Yes Hx Hypertension: Yes - NEURO Hx Neuro Disorders: Yes Hx Brain Tumor: Yes (Dec 22, 1999) Hx Dizziness: Yes (takes Antivert as needed) Hx Neuropathy: No - GI Hx GI Disorders: Yes Hx Reflux: Yes - Hx Genitourinary Disorders: Yes Hx Bladder Problem: Yes Hx Kidney Stones: Yes Hx UTI: Yes Comment:: urgency - ENDOCRINE Hx Endocrine Disorders: Yes Hx Diabetes: Yes Hx Thyroid Disease: Yes - MUSCULOSKELETAL Hx Musculoskeletal Disorders: Yes Hx Gout: Yes - PSYCH Hx Psych Problems: Yes Hx Depression: Yes - HEMATOLOGY/ONCOLOGY Hx Hematology/Oncology Disorders: No Hx Blood Transfusions: No Family Medical History Any Significant Family History?: Yes Hx Diabetes: Grandparents Hx HTN: Grandparents Hx Kidney Disease: Grandparents *Kidney Comment: Maternal Grandmother Hx Stroke: Mother, Grandparents H&P Meds/Allergies - Allergies Allergies: Allergies Allergy/AdvReac Type Severity Reaction Status Date / Time acetaminophen [ACETAMINOPHEN] Allergy Unknown HEADACHE Verified 05/11/18 20:27 cephalexin Allergy Unknown PT UNSURE Verified 04/04/18 18:00 OF REACTION ciprofloxacin Allergy Unknown PT UNSURE Verified 04/04/18 18:00 OF REACTION Iodinated Contrast- Oral and Allergy Unknown PT UNSURE Verified 04/04/18 18:00 IV Dye OF REACTION [Iodinated Contrast Media - Oral and] - Home Medications Home Medications Medication Instructions Recorded Confirmed Last Taken Amlodipine Besylate [Norvasc] 2.5 mg PO DAILY 05/10/18 05/10/18 Unknown Lisinopril [Zestril] 5 mg PO DAILY 05/10/18 05/10/18 Unknown Previous Rx's Medication Instructions Recorded Meclizine HCl [Antivert] 25 mg PO Q8H PRN #30 tablet 03/13/15 - Active Medications Active Medications: Current Medications Allopurinol (Zyloprim) 100 mg PO DAILY [facility] Last Admin: 05/11/18 09:11 Dose: 100 mg Amlodipine Besylate (Norvasc) 2.5 mg PO DAILY [facility] Last Admin: 05/11/18 09:11 Dose: 2.5 mg Escitalopram Oxalate (Lexapro) 20 mg PO DAILY [facility] Last Admin: 05/11/18 09:11 Dose: 20 mg Hydralazine HCl (Apresoline) 5 mg IV Q6HR PRN PRN Reason: HYPERTENSIVE EMERGENCY [facility]othy[facility] S[facility] Lisinopril (Zestril) 5 mg PO DAILY [facility] Last Admin: 05/11/18 09:12 Dose: 5 mg Meclizine HCl (Antivert) 25 mg PO Q8H PRN PRN Reason: DIZZINESS Naproxen (Naprosyn) 250 mg PO Q12H PRN PRN Reason: PAIN - MILD TO MODERATE (1-7) Non-Formulary Medication (Bupropion Hcl [Bupropion Hcl Sr]) 100 mg PO DAILY [facility] Last Admin: 05/11/18 09:12 Dose: 100 mg Pantoprazole Sodium (Protonix) 40 mg PO DAILYAC [facility] Last Admin: 05/11/18 06:53 Dose: 40 mg Ropinirole HCl (Requip) 0.5 mg PO QHS [facility] Last Admin: 05/10/18 23:21 Dose: Not Given Physical Exam - Vital Signs Vital Signs: Vital Signs - Last 24 Hrs Temp Pulse Pulse Resp BP BP BP 05/11/18 10:00 97.7 F 54 L 20 176/92 05/11/18 08:33 20 05/11/18 06:00 97.9 F 59 L 20 180/73 05/11/18 00:52 97.7 F 54 L 20 157/75 05/10/18 22:52 97.5 F L 59 L 20 198/94 05/10/18 22:31 58 L 20 165/85 05/10/18 21:08 55 L 18 162/87 05/10/18 20:03 98.5 F 100 H 16 195/84 Pulse Ox 05/11/18 10:00 93 L 05/11/18 08:33 05/11/18 06:00 95 05/11/18 00:52 94 L 05/10/18 22:52 99 05/10/18 22:31 97 05/10/18 21:08 97 05/10/18 20:03 95 - General General Appearance: Alert, Oriented x3, Cooperative, No acute distress Limitations: No limitations - Head Head exam: Atraumatic, Normocephalic, Normal inspection - Eye Eye exam: Normal appearance, PERRL, EOMI - ENT ENT exam: Mucous membranes moist Throat exam: Normal inspection, Tonsillar exudate - Neck Neck exam: Normal inspection, Full ROM. negative: Tenderness - Respiratory Respiratory exam: Normal lung sounds bilaterally, Chest wall tenderness (right side). negative: Respiratory distress - Cardiovascular Cardiovascular Exam: Regular rate, Normal rhythm, Normal heart sounds, Bradycardia - GI/Abdominal GI/Abdominal exam: Soft, Normal bowel sounds. negative: Tenderness - Rectal Rectal exam: Deferred - exam: Deferred - Extremities Extremities exam: Joint swelling, Normal capillary refill, Tenderness ( bilateral knees). negative: Normal inspection (There is mild erythema over the anterior knees R>L but no swelling, or tenderness.), Pedal edema - Back Back exam: Reports: Normal inspection - Neurological Neurological exam: Alert, CN II-XII intact, Oriented X3. negative: Altered, Motor sensory deficit - Psychiatric Psychiatric exam: Normal affect. negative: Depressed - Skin Skin exam: Dry, Intact, Warm. negative: Abrasion, Rash Results - Labs Result Diagrams: 05/11/18 03:00 05/11/18 03:00 Labs Last 24 Hours: Laboratory Results - last 24 hr 05/10/18 05/10/18 05/10/18 20:20 20:20 20:20 WBC 6.7 RBC 4.95 Hgb 14.9 Hct 44.2 MCV 89.3 MCH 30.1 MCHC 33.7 RDW 15.2 H Plt Count 257 MPV 10.9 H Gran % 78.1 Lymphocytes % 14.7 L Monocytes % 6.7 Eosinophils % 0.4 Basophils % 0.1 Sodium 141 Potassium 4.0 Chloride 106 Carbon Dioxide 22.0 Anion Gap 13.0 BUN 14 Creatinine 0.9 Estimated GFR > 60 POC Glucose 129 H Random Glucose 132 H Calcium 10.8 H Magnesium Total Bilirubin 0.40 AST 28 ALT 20 Alkaline Phosphatase 162 H Creatine Kinase 442 H Troponin T Total Protein 7.1 Albumin 3.8 L Globulin 3.3 Albumin/Globulin Ratio 1.2 Urine Color Urine Appearance Urine pH Ur Specific [place] Urine Protein Urine Glucose (UA) Urine Ketones Urine Blood Urine Nitrite Urine Bilirubin Urine Urobilinogen Ur Leukocyte Esterase 05/10/18 05/10/18 05/10/18 20:20 20:21 21:48 WBC RBC Hgb Hct MCV MCH MCHC RDW Plt Count MPV Gran % Lymphocytes % Monocytes % Eosinophils % Basophils % Sodium Potassium Chloride Carbon Dioxide Anion Gap BUN Creatinine Estimated GFR POC Glucose Random Glucose Calcium Magnesium 2.2 Total Bilirubin AST ALT Alkaline Phosphatase Creatine Kinase Cancelled Troponin T < 0.010 Total Protein Albumin Globulin Albumin/Globulin Ratio Urine Color Yellow Urine Appearance Clear Urine pH 7.0 Ur Specific [place] 1.020 Urine Protein Trace H Urine Glucose (UA) 100 mg/dl H Urine Ketones Trace H Urine Blood Negative Urine Nitrite Negative Urine Bilirubin Negative Urine Urobilinogen 0.2 Ur Leukocyte Esterase Negative 05/11/18 05/11/18 05/11/18 03:00 03:00 03:00 WBC 6.6 RBC 4.71 Hgb 14.2 Hct 41.7 MCV 88.5 MCH 30.1 MCHC 34.1 RDW 14.9 H Plt Count 250 MPV 11.1 H Gran % 67.1 Lymphocytes % 24.4 Monocytes % 7.4 Eosinophils % 0.9 Basophils % 0.2 Sodium 141 Potassium 4.1 Chloride 106 Carbon Dioxide 24.0 Anion Gap 11.0 BUN 13 Creatinine 0.9 Estimated GFR > 60 POC Glucose Random Glucose 139 H Calcium 10.7 H Magnesium Total Bilirubin AST ALT Alkaline Phosphatase Creatine Kinase Troponin T Cancelled < 0.010 Total Protein Albumin Globulin Albumin/Globulin Ratio Urine Color Urine Appearance Urine pH Ur Specific [place] Urine Protein Urine Glucose (UA) Urine Ketones Urine Blood Urine Nitrite Urine Bilirubin Urine Urobilinogen Ur Leukocyte Esterase 05/11/18 05/11/18 08:08 12:28 WBC RBC Hgb Hct MCV MCH MCHC RDW Plt Count MPV Gran % Lymphocytes % Monocytes % Eosinophils % Basophils % Sodium Potassium Chloride Carbon Dioxide Anion Gap BUN Creatinine Estimated GFR POC Glucose 110 135 H Random Glucose Calcium Magnesium Total Bilirubin AST ALT Alkaline Phosphatase Creatine Kinase Troponin T Total Protein Albumin Globulin Albumin/Globulin Ratio Urine Color Urine Appearance Urine pH Ur Specific [place] Urine Protein Urine Glucose (UA) Urine Ketones Urine Blood Urine Nitrite Urine Bilirubin Urine Urobilinogen Ur Leukocyte Esterase VTE H&P Assessment - Risk for VTE Risk for VTE: Yes Risk Level: High Risk Assessment Date: 05/11/18 Risk Assessment Time: 18:00 VTE Orders Placed or Will Be Placed: Yes Plan - Detailed Diagnosis and Plan (1) Diabetes mellitus with hypoglycemia Current Visit: Yes Status: Acute Base Code: E11.649 - TYPE 2 DIABETES MELLITUS WITH HYPOGLYCEMIA WITHOUT COMA Comment: 05/11/18: -AC & HS accuchecks ordered -Since arrival to ED, blood glucose levels range from 132 to 135 -No insulin since Monday05/08/18 per pt report -Usual home dose of insulin: Novolog 30 units SQ with meals and Lantus 72 units q. HS -Reduce Lantus to 50 units tonight, monitor effect on A.M. blood glucose (2) Unwitnessed fall Current Visit: Yes Status: Acute Base Code: R29.6 - REPEATED FALLS Comment : 05/11/18: -Unwitnessed fall, pt does not remember details of fall -Known BPPV, takes Meclizine TID PRN, however stopped during hospitalization d/ t [facility] list -Recent low blood sugars -Orthostats: lying 176/92, sitting 164/56, standing 158/94 (asymptomatic) -Right chest wall tender, no fractures per CXR -Head CT negative for acute process -C/o bilateral knee pain after fall (3) Acute bilateral knee pain Current Visit: Yes Status: Acute Base Code: M25.561 - PAIN IN RIGHT KNEE; M25.562 - PAIN IN LEFT KNEE Comment: 05/11/18: -Bilateral knee pain 8/10, swelling and tenderness noted -Allergiec to acetaminophen, unable to take NSAIDS d/t recent dx of Stomach Ulcers -Ultram 50mg q. 6 hours PRN ordered -Bilateral knee X-rays ordered, results pending (4) Hypertension Current Visit: Yes Status: Acute Base Code: I10 - ESSENTIAL (PRIMARY) HYPERTENSION Comment: 05/11/18: -SBP 160s to 170s -Continue Lisinopril 5mg daily and Norvasc 2.5mg daily -Hydralazine 5mg IV q. 6 hours PRN for SBP greater than 180 or DBP less than 110 (5) DVT prophylaxis Current Visit: Yes Status: Acute Base Code: [id number] - Comment: 05/11/18: -High risk for DVT d/t age. -Nursing to encourage ambulation -SCDs ordered -Likely discharge in the a.m. on 05/12/18, if not, will start Lovenox 40mg SQ daily (6) Full code status Current Visit: Yes Status: Acute Base Code: Z78.9 - OTHER SPECIFIED HEALTH STATUS Comment: 05/11/18: -Full Code this admission
[2018-05-11] MEDS ORDERED: LEVEMIR FLEXTOUCH 100 UNIT/ML INSULIN PEN SQ SCH (22:00)
[2018-05-11] MEDS: TRAMADOL HCL 50 MG TABLET PO PRN (22:08)
[2018-05-11] MEDS: ROPINIROLE HCL 1 MG TABLET PO SCH (22:09)
[2018-05-12 06:15] LABS: BASO % 0.4 % (0-6); EOS % 1.1 % (0-6); GRAN % 54.8 % (47-80); HEMATOCRIT 41.1 % (35.0-47.0); HEMOGLOBIN 13.8 gm/dl (11.6-16.0); LYMPH % 34.4 % (16-45); MEAN CORPUSCULAR HEMOGLOBIN 29.9 pg (27-33); MEAN CORPUSCULAR HGB CONC 33.6 g/dl (32-36); MEAN PLATELET VOLUME 10.7 fl (7.4-10.4); MONO % 9.3 % (0-9); PLATELET COUNT 224 K/uL (130-400); RED BLOOD COUNT 4.62 M/uL (3.80-5.40); RED CELL DISTRIBUTION WIDTH 14.9 % (11.5-14.5); WHITE BLOOD COUNT W/O DIFF 4.5 K/uL (4.2-12.2)
[2018-05-12 06:33] LABS: ALB/GLOB RATIO 1.3 (1.1-1.8); ALBUMIN 3.8 g/dL (4.0-5.0); BILIRUBIN,TOTAL 0.3 mg/dL (0.2-1.0); TOTAL PROTEIN 6.8 g/dL (6.6-8.7)
[2018-05-12] MEDS: PANTOPRAZOLE SODIUM 40 MG TABLET PO SCH (06:35)
[2018-05-12] MEDS: TRAMADOL HCL 50 MG TABLET PO PRN (06:36)
[2018-05-12] MEDS ORDERED: LEVOTHYROXINE SODIUM 100 MCG TABLET PO SCH (07:00)
[2018-05-12] MEDS ORDERED: NOVOLOG FLEXPEN (INSULIN ASPART) 100 UNITS/ML SQ ONE (09:09)
--- NOTE | 2018-05-12 10:10 | Discharge Summary ---
Providers Discharge Summary Date: 05/12/18 Date of admission: 05/10/18 22:34 Attending physician: BESS GILLESPIE Primary care physician: BERT COREAS D.O. Physical Exam - Vital Signs Vital Signs: Vital Signs - Last 24 Hrs Temp Pulse Resp BP Pulse Ox 05/12/18 09:10 98.1 F 60 18 173/88 95 05/12/18 06:00 97.8 F 54 L 20 176/78 95 05/12/18 01:11 97.7 F 62 20 167/72 96 05/11/18 20:00 97.9 F 58 L 20 164/69 97 05/11/18 18:00 98.4 F 56 L 20 164/86 94 L 05/11/18 14:00 97.8 F 58 L 20 168/72 94 L - General General Appearance: Alert, Oriented x3, Cooperative, No acute distress Limitations: No limitations - Head Head exam: Atraumatic, Normocephalic, Normal inspection - Eye Eye exam: Normal appearance, PERRL, EOMI - ENT ENT exam: Mucous membranes moist Throat exam: Normal inspection, Tonsillar exudate - Neck Neck exam: Normal inspection, Full ROM. negative: Tenderness - Respiratory Respiratory exam: Normal lung sounds bilaterally, Chest wall tenderness (right side). negative: Respiratory distress - Cardiovascular Cardiovascular Exam: Regular rate, Normal rhythm, Normal heart sounds, Bradycardia - GI/Abdominal GI/Abdominal exam: Soft, Normal bowel sounds. negative: Tenderness - Rectal Rectal exam: Deferred - exam: Deferred - Extremities Extremities exam: Joint swelling, Normal capillary refill, Tenderness ( bilateral knees). negative: Normal inspection (There is mild erythema over the anterior knees R>L but no swelling, or tenderness.), Pedal edema - Back Back exam: Reports: Normal inspection - Neurological Neurological exam: Alert, CN II-XII intact, Oriented X3. negative: Altered, Motor sensory deficit - Psychiatric Psychiatric exam: Normal affect. negative: Depressed - Skin Skin exam: Dry, Intact, Warm. negative: Abrasion, Rash Hospitalization - Hospitalization Admission Diagnosis: 1. Acute Persistent Hypoglycemia with Diabetes. - Problem List/Discharge Diagnosis (1) Diabetes mellitus with hypoglycemia Current Visit: Yes Status: Acute Base Code: E11.649 - TYPE 2 DIABETES MELLITUS WITH HYPOGLYCEMIA WITHOUT COMA Comment: 05/12/18: -No insulin since Monday05/08/18 per pt report on 05/11/18 -Lantus 50 units SQ last evening, Blood glucose level 286 this a.m. -Restart Lantus 72 units q. HS this evening -Recommend to stop Novolog until seen by Diabetes PULMONOLOGY TECHNICIAN Tory Dozier on 05/17/18 (2) Unwitnessed fall Current Visit: Yes Status: Acute Base Code: R29.6 - REPEATED FALLS Comment : 05/11/18: -Recommend that Meclizine not be taken d/t BEERS list -Recommend that pt f/u with PCP -Unwitnessed fall, pt does not remember details of fall -Recent low blood sugars -Orthostats: lying 176/92, sitting 164/56, standing 158/94 (asymptomatic) -Right chest wall tender, no fractures per CXR -Head CT negative for acute process -C/o bilateral knee pain after fall (3) Acute bilateral knee pain Current Visit: Yes Status: Acute Base Code: M25.561 - PAIN IN RIGHT KNEE; M25.562 - PAIN IN LEFT KNEE Comment: 05/12/18: -Preliminary bilateral knee X-ray: joint effusions and DJD -Follow up with PCP in 1 weeks -Allergiec to acetaminophen, unable to take NSAIDS d/t recent dx of Stomach Ulcers -#4 Ultram prescribed, recommend taking 1/2 tablet at a time for severe knee pain (4) Hypertension Current Visit: Yes Status: Acute Base Code: I10 - ESSENTIAL (PRIMARY) HYPERTENSION Comment: 05/12/18: -SBP 160s to 170s -Continue Lisinopril 5mg daily and Norvasc 2.5mg daily -Unsure of pt's baseline BP but given dizziness episodes, recommend that pt f/u with PCP (5) Full code status Current Visit: Yes Status: Acute Base Code: Z78.9 - OTHER SPECIFIED HEALTH STATUS Comment: 05/11/18: -Full Code this admission - Hospitalization Course Disposition: Home Health Service Hospital Course: Chelsey Cassidy is a 73 y.o. F who was brought to the [facility] ED on the evening of 05/10/18 by ambulance d/t hypoglycemia and weakness. Had been found on the floor by her family in her home. Stated that she believes she was on the floor for approximately 24 hours. States that she fell out of bed when trying to get up, but doesn't recall what actually happened. Doesn't know if she hit her or remember being dizzy but does report that she believes she was dehydrated because she had been fasting for 16 hours recently for blood work. Does have problems with dizziness d/t BPPV which was diagnosed in 2014. Reports that she has had an echocardiogram and a stress test that was "perfectly clear" nearly 18 years ago. Was recently diagnosed with stomach ulcers for which she is receiving Protonix. Had been given 2 doses of oral glucose and an amp of D50 by EMS prior to arrival to the ED. Believes that she heard them say her glucose level was 35 when she was found. Pt reported that she has been having frequent low blood glucose levels over the last week but has not had any changes in her insulin schedule. Normally injects 30 units of Novolog with each meal as well as 72 units of Lantus at night but states that she hasn't had any insulin since Monday night. Doesn't check her blood glucose with every meal at home but usually at least twice a day. Frequently has blood glucose levels in the 50s when she gets up in the morning. Diabetes is managed by Tory QUILES and boxer operator from the [facility]. PMHx includes IDDM, HTN, BPPV, NINOSKA, hx of benign meningioma and osteoarthritis. PCP: Dr. Bert Coreas ED Course: VS: T 98.5, HR 100, RR 16, BP 195/84, SpO2 95% on RA EKG: Sinus bradycardia, no significant changes compared to previous EKG Head CT: No acute changes CXR: No rib fractures, no cardiopulmonary disease Glucose: 132, Creatinine 0.9, Troponin <0.010 05/11/18: Reports pain in bilateral knees, 11/10. States that she normally has some knee stiffiness and discomfort d/t OA but has significant discomfort. Believes that the knee pain is r/t the fall and wonders if she may have fallen on her knees. Denies having any dizziness or shakiness today. One episode of nausea but believes it was r/t drinking cranberry juice, which she doesn't particularly care for. Feels weak and lives alone. 05/12/18: Uses walker and cane at home and verbalized to nursing staff that she was uncomfortable with going home alone because of her low blood sugar episodes. Has had elevated blood glucose levels since Monday evening, however pt had not had any insulin since Monday evening. Restarted Lantus last evening with a lower dose than she usually takes at home. Blood glucose this morning in the high 200s. Will recommend increase back to 72 units of Lantus but to stop Novolog until seen by Tory QUILES who manages her diabetes. Procedures: Imaging and X-Rays 05/10/18 20:05 RIBS, RIGHT W/PA CHEST [RAD] Stat 05/10/18 20:25 HEAD WO CONTRAST [CT] Stat 05/11/18 17:33 KNEE, LEFT 1 or 2 VIEWS [RAD] Stat KNEE, RIGHT 1 or 2 VIEWS [RAD] Stat Cardiology Procedures 05/10/18 20:26 EKG NOW 05/10/18 22:52 Prize Jacker .Continuous EKG QDX2@0600 Abnormal Labs: Abnormal Lab Results 05/10/18 05/10/18 05/10/18 Range/Units 20:20 20:20 20:20 RDW 15.2 H (11.5-14.5) % MPV 10.9 H (7.4-10.4) fl Lymphocytes % 14.7 L (16-45) % Monocytes % (0-9) % Creatinine (0.5-0.9) mg/dL POC Glucose 129 H (70-110) mg/dL Random Glucose 132 H (74-109) mg/dL Calcium 10.8 H (8.8-10.2) mg/dL Alkaline Phosphatase 162 H (45-87) U/L Creatine Kinase 442 H (26-192) U/L Albumin 3.8 L (4.0-5.0) g/dL Urine Protein (NEGATIVE) Urine Glucose (UA) (NEGATIVE) Urine Ketones (NEGATIVE) 05/10/18 05/11/18 05/11/18 Range/Units 21:48 03:00 03:00 RDW 14.9 H (11.5-14.5) % MPV 11.1 H (7.4-10.4) fl Lymphocytes % (16-45) % Monocytes % (0-9) % Creatinine (0.5-0.9) mg/dL POC Glucose (70-110) mg/dL Random Glucose 139 H (74-109) mg/dL Calcium 10.7 H (8.8-10.2) mg/dL Alkaline Phosphatase (45-87) U/L Creatine Kinase (26-192) U/L Albumin (4.0-5.0) g/dL Urine Protein Trace H (NEGATIVE) Urine Glucose (UA) 100 mg/dl H (NEGATIVE) Urine Ketones Trace H (NEGATIVE) 05/11/18 05/11/18 05/11/18 Range/Units 12:28 18:30 22:00 RDW (11.5-14.5) % MPV (7.4-10.4) fl Lymphocytes % (16-45) % Monocytes % (0-9) % Creatinine (0.5-0.9) mg/dL POC Glucose 135 H 185 H 413 H (70-110) mg/dL Random Glucose (74-109) mg/dL Calcium (8.8-10.2) mg/dL Alkaline Phosphatase (45-87) U/L Creatine Kinase (26-192) U/L Albumin (4.0-5.0) g/dL Urine Protein (NEGATIVE) Urine Glucose (UA) (NEGATIVE) Urine Ketones (NEGATIVE) 05/12/18 05/12/18 Range/Units 06:05 06:05 RDW 14.9 H (11.5-14.5) % MPV 10.7 H (7.4-10.4) fl Lymphocytes % (16-45) % Monocytes % 9.3 H (0-9) % Creatinine 1.0 H (0.5-0.9) mg/dL POC Glucose (70-110) mg/dL Random Glucose 286 H (74-109) mg/dL Calcium 10.8 H (8.8-10.2) mg/dL Alkaline Phosphatase 162 H (45-87) U/L Creatine Kinase (26-192) U/L Albumin 3.8 L (4.0-5.0) g/dL Urine Protein (NEGATIVE) Urine Glucose (UA) (NEGATIVE) Urine Ketones (NEGATIVE) Condition at Discharge: (2) Stable Discharge Medications - Discharge Medications Prescriptions: Tramadol HCl [Ultram] 25 mg PO Q6H PRN #4 tablet PRN Reason: Pain - Severe (8-10) Home Medications: Ambulatory Orders Bupropion HCl [Bupropion HCl Sr] 100 mg PO DAILY 11/08/13 [Last Taken 1 Day Ago ~04/03/18] Escitalopram Oxalate [Lexapro] 20 mg PO DAILY 11/08/13 [Last Taken 1 Day Ago ~] Lansoprazole 30 mg PO DAILY 11/08/13 [Last Taken 1 Day Ago ~04/03/18] Ropinirole HCl 0.5 mg PO QHS 11/08/13 [Last Taken 1 Day Ago ~04/03/18] Levothyroxine Sodium 200 mcg PO DAILY 12/09/13 [Last Taken 1 Day Ago ~04/03/18] Insulin Glargine,Hum.rec.anlog [Lantus] 72 units SQ QHS 03/07/15 [Last Taken 1 Day Ago ~04/03/18] Meclizine HCl [Antivert] 25 mg PO Q8H PRN #30 tablet 03/13/15 [Last Taken 1 Day Ago ~04/03/18] Allopurinol [Zyloprim] 100 mg PO DAILY 03/24/16 [Last Taken 1 Day Ago ~04/03/18] Vit C/Vit E AC/Lut/Copper/Zinc [PreserVision Lutein Softgel] 1 tab PO DAILY [Last Taken 1 Day Ago ~04/03/18] Amlodipine Besylate [Norvasc] 2.5 mg PO DAILY 05/10/18 [Last Taken Unknown] Lisinopril [Zestril] 5 mg PO DAILY 05/10/18 [Last Taken Unknown] Tramadol HCl [Ultram] 25 mg PO Q6H PRN #4 tablet 05/12/18 [Last Taken Unknown] Discharge Plan - Discharge Instructions Activity at Discharge: Ambulate Only With Your Walker, Increase Activity as Tolerated Diet at Discharge: Diabetic Diet Instructions: Non-diabetic Hypoglycemia (DC), Type 2 Diabetes in Adults (DC) Additional Instructions: Follow up with Tory Dozier 05/17 at 11:20AM at [facility] in [place] Follow up with Primary Care Provider in 1 week Stop taking Novolog (Fast Acting Insulin) before meals until you see Tory Dozier Check Blood Sugar three times a day and log it, take log to your appointment on 05/17/18 Take 1/2 Tramadol pill for severe bilateral knee pain, f/u with PCP regarding knee discomfort Quality Measures - Quality Measures Quality Measures: Advance Directives, Documentation of Current Medications in Medical Record, Elder Maltreatment Screen and Follow-Up Plan, Screening for High Blood Pressure and F/U Documented - Current Medications Quality Measure: Measure #130: Documentation of Current Medications Documentation of Current Medications: <Current Medications Documented/Reviewed> [W1215] - Blood Pressure Screening Quality Measure: Screening for High Blood Pressure and Follow-Up Documented Does Patient Have Any of the Following: Active Dx of HTN Blood Pressure Classification: Pre-Hypertensive BP Reading Systolic Measurement: 158 Diastolic Measurement: 94 Screening for High Blood Pressure: Patient Exclusion, Hx of HTN [G9744] - Advance Directives Quality Measure: Measure #47: Care Plan Advance Directives Established: No Advance Directives Information Provided To Patient: No Advance Directives on File: No Living Will: No Power of Insurance Agency Owner: No Advance Care Planning: <Care Plan/Decision Maker Documented; Discussed & Documented> [[id number]] - Elder Abuse Suspicion Index Screening: Elder Abuse Suspicion Index Screening Rely on people for bathing, dressing, shopping, banking, etc: No Prevented from getting food, clothes, medication, etc: No Made to feel shamed or threatened by someone: No Forced to sign papers or use money against will: No Feel afraid, touched in ways not wanted or hurt physically: No Poor eye contact, withdrawn, malnourished, cuts or bruises: No Screening Result: Negative result EASI Reference Information: Radha NICK, Stephanie C, Yoandy D, Caleb Magana.Development and validation of a tool to assist physicians identification of elder abuse: The Elder Abuse Suspicion Index (EASI ). Journal of Elder Abuse and Neglect, 2008; 20 (3): 276-300. - Elder Maltreatment Screen Quality Measures: Elder Maltreatment Screen and Follow-Up Plan Elder Maltreatment Screen: <Negative, No Follow-Up Plan Required> [P5010]
[2018-05-12] MEDS: ESCITALOPRAM 10 MG TABLET PO SCH (11:05)
[2018-05-12] MEDS: AMLODIPINE BESYLATE 5MG TAB PO SCH (11:07)
[2018-05-12] MEDS: LISINOPRIL 5 MG TABLET PO SCH (11:08)
[2018-05-12] MEDS: ALLOPURINOL 100 MG TAB PO SCH (11:08)
[2018-05-12] MEDS: BUPROPION HCL 100 MG PO SCH (11:11)
--- NOTE | 2018-05-14 07:38 | RADIOLOGY REPORT ---
EXAM: RIGHT KNEE HISTORY: BILATERAL KNEE PAIN. TECHNIQUE: Three views of the right knee were obtained. Comparison: 03/25/13. FINDINGS: There is moderate to severe medial compartment narrowing with osteophytosis. There is subchondral sclerosis and mild subchondral cyst formation. There is a moderate joint effusion. There is moderate patellofemoral DJD. No definite fractures are seen. The bone density is mildly reduced. IMPRESSION: ABNORMAL RIGHT KNEE. THERE IS EVIDENCE OF SIGNIFICANT MEDIAL COMPARTMENT DJD, BUT A MODERATE EFFUSION IS PRESENT. IF SYMPTOMS PERSIST, CONSIDER MRI FOR EVALUATION. JOB NUMBER: [id number] [facility]
--- NOTE | 2018-05-14 07:41 | RADIOLOGY REPORT ---
EXAM: LEFT KNEE, TWO VIEWS HISTORY: BILATERAL KNEE PAIN. TECHNIQUE: Two views of the left knee were obtained. FINDINGS: Two views of the left knee demonstrate moderate medial compartment narrowing with tiny osteophytes. There is mild lateral subluxation of the tibia. There is mild lateral compartment narrowing and mild patellofemoral DJD. There is a small joint effusion. There is a probable ossific loose body within the suprapatellar bursa. No erosive or destructive lesions are seen. IMPRESSION: DJD OF THE LEFT KNEE ALTHOUGH NOT QUITE SEVERE THE RIGHT. THERE IS A JOINT EFFUSION ALTHOUGH NOT LARGE THE RIGHT KNEE. POSSIBLE CALCIFIED SUPRAPATELLAR TINY LOOSE BODY. JOB NUMBER: [id number] [facility]
== END 2018-05-12 13:38 | disposition home health service (06) ==
LOC: ER 19:58 → MEDSURG 22:34
PROVIDERS: ADMIT Internal Medicine; ATTEND Internal Medicine
DX: E11.649 Type 2 diabetes mellitus with hypoglycemia without coma (principal); R29.6 Repeated falls; R53.1 Weakness; H81.10 Benign paroxysmal vertigo, unspecified ear; R07.81 Pleurodynia; I10 Essential (primary) hypertension; E03.9 Hypothyroidism, unspecified; G47.33 Obstructive sleep apnea (adult) (pediatric); K21.9 Gastro-esophageal reflux disease without esophagitis; M25.562 Pain in left knee; M25.561 Pain in right knee; Z87.442 Personal history of urinary calculi; M19.90 Unspecified osteoarthritis, unspecified site
CPT/HCPCS: 36416; 70450; 80048; 80053; 81003; 82550; 82948; 83735; 84484; 85025; 93005; 93010; 99217; 99220; 99285

== ENCOUNTER 2018-09-12 20:55 | Emergency (ER) | payer MEDICARE ==
--- NOTE | 2018-09-12 21:12 | Emergency Department Record ---
History of Present Illness - General Chief complaint: Hypogylcemia Stated complaint: FALL Time Seen by Provider: 09/12/18 21:10 Source: Patient Mode of Arrival: EMS Limitations: No limitations - History of Present Illness Initial comments: pt hit life alert and then was found down on the floor. she slept all day and did not eat. her bs was 54 when the medics arrived. she was given an amp of d50 Onset/Timin -: Hour(s) Associated Symptoms: Confusion - Eunice Coma Scale Eye Response: (4) Open spontaneously Motor Response: (6) Obeys commands Verbal Response: (5) Oriented [place] Total: 15 - Symptoms of Stroke Symptoms of stroke: Onset of Confusion - Related Data Home Medications Medication Instructions Recorded Confirmed Last Taken Insulin Aspart [Novolog] 10 units SQ TID 09/12/18 09/12/18 09/11/18 Previous Rx's Medication Instructions Recorded Meclizine HCl [Antivert] 25 mg PO Q8H PRN #30 tablet 03/13/15 Tramadol HCl [Ultram] 25 mg PO Q6H PRN #4 tablet 05/12/18 Allergies Allergy/AdvReac Type Severity Reaction Status Date / Time acetaminophen [ACETAMINOPHEN] Allergy Unknown HEADACHE Verified 05/11/18 20:27 cephalexin Allergy Unknown PT UNSURE Verified 04/04/18 18:00 OF REACTION ciprofloxacin Allergy Unknown PT UNSURE Verified 04/04/18 18:00 OF REACTION Iodinated Contrast- Oral and Allergy Unknown PT UNSURE Verified 04/04/18 18:00 IV Dye OF REACTION [Iodinated Contrast Media - Oral and] Travel Screening - Travel/Exposure Within Last 30 Days Have you traveled within the last 30 days?: No - Travel/Exposure Within Last Year Have you traveled outside the [place] in the last year?: No - Additonal Travel Details Have you been exposed to anyone with a communicable illness?: No - Travel Symptoms Symptom Screening: None Review of Systems Reviewed: No additional complaints except as noted below Constitutional: Reports: As per HPI. Denies: Chills, Fever, Malaise, Night sweats, Weakness, Weight change Eyes: Reports: As per HPI. Denies: Eye discharge, Eye pain, Photophobia, Vision change ENT: Reports: As per HPI. Denies: Congestion, Dental pain, Ear pain, Epistaxis, Hearing loss, Throat pain Respiratory: Reports: As per HPI. Denies: Cough, Dyspnea, Hemoptysis, Stridor, Wheezes Cardiovascular: Reports: As per HPI. Denies: Arrhythmia, Chest pain, Dyspnea on exertion, Edema, Murmurs, Orthopnea, Palpitations, Paroxysmal nocturnal dyspnea, Rheumatic Fever, Syncope Endocrine: Reports: As per HPI. Denies: Fatigue, Heat or cold intolerance, Polydipsia, Polyuria Gastrointestinal: Reports: As per HPI. Denies: Abdominal pain, Constipation, D iarrhea, Hematemesis, Hematochezia, Melena, Nausea, Vomiting Genitourinary: Reports: As per HPI. Denies: Abnormal menses, Discharge, Dyspareunia, Dysuria, Frequency, Hematuria, Incontinence, Retention, Urgency Musculoskeletal: Reports: As per HPI. Denies: Arthralgia, Back pain, Gout, Joint swelling, Myalgia, Neck pain Skin: Reports: As per HPI. Denies: Bruising, Change in color, Change in hair/nails, Lesions, Pruritus, Rash Neurological: Reports: As per HPI. Denies: Abnormal gait, Confusion, Headache, Numbness, Paresthesias, Seizure, Tingling, Tremors, Vertigo, Weakness Psychiatric: Reports: As per HPI. Denies: Anxiety, Auditory hallucinations, Depression, Homicidal thoughts, Suicidal thoughts, Visual hallucinations Hematological/Lymphatic: Reports: As per HPI. Denies: Anemia, Blood Clots, Easy bleeding, Easy bruising, Swollen glands Past Medical History - SOCIAL HISTORY Smoking Status: Never smoker Alcohol Use: None Drug Use: None - RESPIRATORY Hx Respiratory Disorders: Yes Hx Asthma: Yes (No medication) Hx Bronchitis: Yes Hx Pulmonary Embolism: No (Mother from PE) Hx Sleep Apnea: Yes Comment:: Does not wish to use her CPAP while sick - CARDIOVASCULAR Hx Cardio Disorders: Yes Hx Hypertension: Yes - NEURO Hx Neuro Disorders: Yes Hx Brain Tumor: Yes (Dec 22, 1999) Hx Dizziness: Yes (takes Antivert as needed) Hx Neuropathy: No - GI Hx GI Disorders: Yes Hx Reflux: Yes - Hx Genitourinary Disorders: Yes Hx Bladder Problem: Yes Hx Kidney Stones: Yes Hx UTI: Yes Comment:: urgency - ENDOCRINE Hx Endocrine Disorders: Yes Hx Diabetes: Yes Hx Thyroid Disease: Yes - MUSCULOSKELETAL Hx Musculoskeletal Disorders: Yes Hx Gout: Yes - PSYCH Hx Psych Problems: Yes Hx Anxiety: Yes Hx Depression: Yes - HEMATOLOGY/ONCOLOGY Hx Hematology/Oncology Disorders: No Hx Blood Transfusions: No Family Medical History Any Significant Family History?: Yes Hx Diabetes: Grandparents Hx HTN: Grandparents Hx Kidney Disease: Grandparents *Kidney Comment: Maternal Grandmother Hx Stroke: Mother, Grandparents Physical Exam - General General Appearance: Alert, Oriented x3, Cooperative, No acute distress - Head Head exam: Normal inspection - Eye Eye exam: Normal appearance, PERRL, EOMI Pupils: Normal accommodation - ENT ENT exam: Normal exam, Mucous membranes moist, Normal external ear exam, Normal orophraynx, TM's normal bilaterally Ear exam: Normal external inspection. negative: External canal tenderness Nasal Exam: Normal inspection. negative: Discharge, Sinus tenderness Mouth exam: Normal external inspection, Tongue normal Teeth exam: Normal inspection. negative: Dental caries Throat exam: Normal inspection. negative: Tonsillar erythema, Tonsillar exudate - Neck Neck exam: Normal inspection, Full ROM. negative: Tenderness - Respiratory Respiratory exam: Normal lung sounds bilaterally. negative: Respiratory distress - Cardiovascular Cardiovascular Exam: Regular rate, Normal rhythm, Normal heart sounds - GI/Abdominal GI/Abdominal exam: Soft, Normal bowel sounds. negative: Tenderness - Rectal Rectal exam: Deferred - exam: Deferred - Extremities Extremities exam: Normal inspection, Full ROM, Normal capillary refill. negative: Tenderness - Back Back exam: Reports: Normal inspection, Full ROM. Denies: Muscle spasm, Rash noted, Tenderness - Neurological Neurological exam: Alert, CN II-XII intact, Normal gait, Oriented X3 - Psychiatric Psychiatric exam: Normal affect, Normal mood - Skin Skin exam: Dry, Intact, Normal color, Warm Course Vital Signs 09/12/18 21:02 Temperature 97.5 F L Pulse Rate [ 53 L Pulse Ox Probe] Respiratory 20 Rate Blood Pressure 178/73 [Left Arm] Pulse Ox 100 Medical Decision Making - Lab Data Result diagrams: 09/12/18 22:10 09/12/18 23:35 Disposition Disposition: Discharge Clinical Impression: Hypoglycemia Disposition: Home, Self-Care Condition: (1) Good Instructions: Hypoglycemia in a Person with Diabetes (ED) Additional Instructions: follow up with family doctor. return sooner if worse. eat balanced meals Forms: Patient Portal Access Quality - Quality Measures Quality Measures: N/A - Blood Pressure Screening Does Patient Have Any of the Following: Active Dx of HTN Blood Pressure Classification: Hypertensive Reading Systolic Measurement: 176 Diastolic Measurement: 97 Screening for High Blood Pressure: Patient Exclusion, Hx of HTN [G9744]
[2018-09-12] MEDS ORDERED: 0.9 % SODIUM CHLORIDE 1,000 ML BAG IV ONE (21:16)
[2018-09-12 22:16] LABS: ABSOLUTE NEUTROPHIL COUNT 14.48; HEMATOCRIT 48.1 % (35.0-47.0); MEAN CELL VOLUME 85.1 fl (81-97); MEAN CORPUSCULAR HEMOGLOBIN 28.3 pg (27-33); MEAN CORPUSCULAR HGB CONC 33.3 g/dl (32-36); MEAN PLATELET VOLUME 10.9 fl (7.4-10.4); PLATELET COUNT 258 K/uL (130-400); RED BLOOD COUNT 5.65 M/uL (3.80-5.40); RED CELL DISTRIBUTION WIDTH 13.8 % (11.5-14.5); WHITE BLOOD COUNT W/O DIFF 16.5 K/uL (4.2-12.2)
[2018-09-12 22:34] LABS: BLOOD UREA NITROGEN 19 mg/dL (8-23); CREATININE 0.8 mg/dL (0.5-0.9); EST GLOMERULAR FILTRATION RATE > 60 mL/min
[2018-09-12 22:37] LABS: GLUCOSE,RANDOM 106 mg/dL (74-109)
== END 2018-09-13 00:36 | disposition home or self-care (01) ==
LOC: ER 20:55
DX: E11.649 Type 2 diabetes mellitus with hypoglycemia without coma (principal); Z79.4 Long term (current) use of insulin; I10 Essential (primary) hypertension; E03.9 Hypothyroidism, unspecified
CPT/HCPCS: 36416; 80048; 82947; 82948; 85027; 99283

== ENCOUNTER 2018-09-13 15:07 | Emergency (ER) | payer MEDICARE ==
[2018-09-13] MEDS ORDERED: IBUPROFEN 400 MG TABLET PO ONE (15:28)
--- NOTE | 2018-09-13 15:32 | Emergency Department Record ---
History of Present Illness - General Chief Complaint: Fall Injury Stated Complaint: FALL INJURY Time Seen by Provider: 09/13/18 15:08 Source: Patient Mode of Arrival: Wheelchair Limitations: No limitations - History of Present Illness Initial Comments: The patient fell out of bed yesterday and was seen here last evening for low blood sugar. She had no complaints of L elbow or head pain at that time. She was evaluated here in the ER and discharged to home. The patient has been ambulating with her walker at home but later noticed L elbow and head pain. There has been no new falls, neck pain, vomiting, or confusion. MD Complaint: Fall Onset/Timin -: Days(s) Fall From: Out of bed When Fall Occurred: 24 hours DIRECTOR OF RADIOLOGY Fall Witnessed: No Place Fall Occurred: Home Loss of Consciousness: None Prolonged Down Time?: Hour(s) Symptoms Prior to Fall: None Location: Head Severity: Moderate Severity scale (1-10): 10 Context: Other Associated Symptoms: Denies - [place] Coma Scale Eye Response: (4) Open spontaneously Motor Response: (6) Obeys commands Verbal Response: (5) Oriented [place] Total: 15 - Related Data Previous Rx's Medication Instructions Recorded Meclizine HCl [Antivert] 25 mg PO Q8H PRN #30 tablet 03/13/15 Tramadol HCl [Ultram] 25 mg PO Q6H PRN #4 tablet 05/12/18 Allergies Allergy/AdvReac Type Severity Reaction Status Date / Time acetaminophen [ACETAMINOPHEN] Allergy Unknown HEADACHE Verified 09/13/18 15:09 cephalexin Allergy Unknown PT UNSURE Verified 09/13/18 15:09 OF REACTION ciprofloxacin Allergy Unknown PT UNSURE Verified 09/13/18 15:09 OF REACTION Iodinated Contrast- Oral and Allergy Unknown PT UNSURE Verified 09/13/18 15:09 IV Dye OF REACTION [Iodinated Contrast Media - Oral and] Travel Screening - Travel/Exposure Within Last 30 Days Have you traveled within the last 30 days?: No - Travel/Exposure Within Last Year Have you traveled outside the [place] in the last year?: No - Additonal Travel Details Have you been exposed to anyone with a communicable illness?: No - Travel Symptoms Symptom Screening: None Review of Systems Constitutional: Denies: Chills, Fever Eyes: Denies: Eye discharge ENT: Denies: Congestion Respiratory: Denies: Cough Cardiovascular: Denies: Arrhythmia, Chest pain Past Medical History - SOCIAL HISTORY Smoking Status: Never smoker Alcohol Use: None Drug Use: None - RESPIRATORY Hx Respiratory Disorders: Yes Hx Asthma: Yes (No medication) Hx Bronchitis: Yes Hx Pulmonary Embolism: No (Mother from [place]) Hx Sleep Apnea: Yes Comment:: Does not wish to use her CPAP while sick - CARDIOVASCULAR Hx Cardio Disorders: Yes Hx Hypertension: Yes - NEURO Hx Neuro Disorders: Yes Hx Brain Tumor: Yes (Dec 22, 1999) Hx Dizziness: Yes (takes Antivert as needed) Hx Neuropathy: No - GI Hx GI Disorders: Yes Hx Reflux: Yes - Hx Genitourinary Disorders: Yes Hx Bladder Problem: Yes Hx Kidney Stones: Yes Hx UTI: Yes Comment:: urgency - ENDOCRINE Hx Endocrine Disorders: Yes Hx Diabetes: Yes Hx Thyroid Disease: Yes - MUSCULOSKELETAL Hx Musculoskeletal Disorders: Yes Hx Gout: Yes - PSYCH Hx Psych Problems: Yes Hx Anxiety: Yes Hx Depression: Yes - HEMATOLOGY/ONCOLOGY Hx Hematology/Oncology Disorders: No Hx Blood Transfusions: No Family Medical History Any Significant Family History?: Yes Hx Diabetes: Grandparents Hx HTN: Grandparents Hx Kidney Disease: Grandparents *Kidney Comment: Maternal Grandmother Hx Stroke: Mother, Grandparents Physical Exam - General General Appearance: Alert, Oriented x3, Cooperative, No acute distress - Head Head exam: Normocephalic. negative: Atraumatic (There is a small bruise to the R occiput with mild tenderness.) - Eye Eye exam: Normal appearance, PERRL. negative: Conjunctival injection - ENT Throat exam: Normal inspection. negative: Tonsillar erythema, Tonsillar exudate - Neck Neck exam: Normal inspection, Full ROM. negative: Tenderness - Respiratory Respiratory exam: Normal lung sounds bilaterally. negative: Respiratory distress - GI/Abdominal GI/Abdominal exam: Soft, Normal bowel sounds. negative: Tenderness - Extremities Extremities exam: Tenderness (There is bruising and tenderness to the L lateral elbow. There is decreased ROM due to pain. The L arm and hand are NVI with normal pulses.). negative: Normal inspection, Full ROM - Neurological Neurological exam: Alert, Oriented X3. negative: Altered, Motor sensory deficit Course Vital Signs 09/13/18 15:14 Temperature 98.7 F Pulse Rate 61 Respiratory 20 Rate Blood Pressure 151/81 Pulse Ox 98 - Reevaluation(s) Reevaluation #1: I did discuss the xray results with the patient. The L elbow xray does demonstrate a joint effusion so an occult fx cannot be excluded. We will have the patient use an arm sling and take her home pain medicines and she is to see her PCP in 1-2 weeks for recheck. 09/13/18 16:40 Medical Decision Making - Data Complexity MDM Data: X-Ray Ordered and/or Reviewed - Radiology Data Radiology results: Report reviewed (Head CT: Neg for any acute changes. Multiple old chronic issues. L elbow: Neg bony fx, positive joint effusion. Occult fx cannot be excluded.) Disposition Disposition: Discharge Clinical Impression: Injury of elbow Qualifiers: Encounter type: initial encounter Laterality: left Qualified Code(s): S59.902A - Unspecified injury of left elbow, initial encounter Disposition: Home, Self-Care Condition: (2) Stable Instructions: Elbow Sprain (ED) Additional Instructions: Please take your home pain medicines and please use the arm sling at all times. Please see your family doctor in 1-2 weeks for recheck and repeat xrays. Return to the ER for any worsening symptoms. Forms: Patient Portal Access Time of Disposition: 16:42 Quality - Quality Measures Quality Measures: N/A - Blood Pressure Screening View Details: Yes Does Patient Have Any of the Following: No Blood Pressure Classification: Pre-Hypertensive BP Reading Systolic Measurement: 151 Diastolic Measurement: 81 Screening for High Blood Pressure: < Pre-Hypertensive BP, F/U Documented > [G8950] Pre-Hypertensive Follow-up Interventions: Referral to alternative/primary care provider.
--- NOTE | 2018-09-14 15:12 | CT SCAN REPORT ---
EXAM: CT SCAN OF THE HEAD WITHOUT CONTRAST HISTORY: FELL YESTERDAY. RIGHT SIDED HEAD PAIN. TECHNIQUE: Standard CT imaging of the brain was performed in the axial plane without contrast. Additional coronal and sagittal reformatted images were also performed. Comparison: 05/10/18. Encounter: Initial. Hand dominance: Right. FINDINGS: Post surgical changes are present within the right frontal temporal region. A craniotomy defect is present. There is mild adjacent encephalomalacia within the right frontal temporal region. These areas are unchanged compared to the previous examination. A small area of encephalomalacia involving the medial right frontal lobe is also stable. There are stable calcified meningiomas within the inferolateral left frontal region and superior right frontal region. There is no intraaxial mass, mass effect, hemorrhage, or visible infarct. There are no abnormal extraaxial fluid collections. There is no skull fracture. There is minor mucosal thickening within the left sphenoid sinus. The sinuses are otherwise clear. The orbits are unremarkable. The mastoid air cells are clear. IMPRESSION: 1. STABLE POST SURGICAL CHANGES WITHIN THE RIGHT FRONTAL TEMPORAL REGION. 2. STABLE CALCIFIED MENINGIOMAS WITHIN THE FRONTAL REGIONS BILATERALLY. 3. MINOR CHRONIC SMALL VESSEL ISCHEMIC CHANGES. 4. NO ACUTE INTRACRANIAL ABNORMALITY. JOB NUMBER: [id number] MTDD
--- NOTE | 2018-09-14 15:16 | RADIOLOGY REPORT ---
EXAM: LEFT ELBOW HISTORY: LEFT ELBOW PAIN STATUS POST FALL YESTERDAY. TECHNIQUE: Three views of the left elbow were obtained. Comparison: None. FINDINGS: A joint effusion is present. There is displacement of the anterior and posterior fat pads. The bones are osteopenic. There is chronic appearing calcification along the posteromedial aspect of the elbow. This is smoothly marginated. There is no visible fracture. Given the presence of the joint effusion, an occult radial head or neck fracture is suspected. Radiographic follow-up is recommended. IMPRESSION: 1. LEFT ELBOW EFFUSION WITH NO VISIBLE FRACTURE. AN OCCULT FRACTURE IS SUSPECTED. RADIOGRAPHIC FOLLOW-UP IS RECOMMENDED IN ONE TO TWO WEEKS. 2. CHRONIC CALCIFIC DENSITY ALONG THE POSTEROMEDIAL ASPECT OF THE ELBOW. JOB NUMBER: [id number] MTDD
== END 2018-09-13 17:17 | disposition home or self-care (01) ==
LOC: ER 15:07
DX: S50.02XA Contusion of left elbow, initial encounter (principal); S00.03XA Contusion of scalp, initial encounter; R51 Headache; M25.422 Effusion, left elbow; W06.XXXA Fall from bed, initial encounter; Y92.003 Bedroom of unspecified non-institutional (private) residence as the place of occurrence of the external cause; I10 Essential (primary) hypertension; E11.9 Type 2 diabetes mellitus without complications
CPT/HCPCS: 70450; 99283; 99284

== ENCOUNTER 2018-10-02 17:59 | Emergency (ER) | payer MEDICARE ==
[2018-10-02] MEDS ORDERED: CLINDAMYCIN 150 MG CAP PO ONE (18:09)
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
== END 2018-10-02 18:34 | disposition home or self-care (01) ==
LOC: ER 17:59
DX: L03.311 Cellulitis of abdominal wall (principal)
CPT/HCPCS: 99282

== ENCOUNTER 2018-10-08 03:08 | Emergency (ER) | payer MEDICARE ==
--- NOTE | 2018-10-08 03:40 | Emergency Department Record ---
History of Present Illness - General Chief Complaint: Wound, check Stated Complaint: SORE ON ABDOMEN Time Seen by Provider: 10/08/18 03:11 Source: Patient Mode of arrival: Ambulatory Limitations: No limitations - History of Present Illness Initial Comments: pt here because her cellulitis seems to be getting bigger. it has always had a black center, she has been on clindamycin for 6 days Complaint: Wound re-check Onset/Timin -: Days(s) Initial Visit For: Cellulitis Returns Today for: Wound recheck Symptoms Since Prior Visit: Worsening discharge, Worsening redness, Worsening swelling Associated Symptoms: None Treatments Prior to Arrival: Given antibiotics on initial visit, Given pain medications on initial visit - Related Data Previous Rx's Medication Instructions Recorded Clindamycin HCl [Cleocin HCl] 300 mg PO QID #28 capsule 10/02/18 Tramadol HCl [Ultram] 50 mg PO Q6H #10 tab 10/02/18 Allergies Allergy/AdvReac Type Severity Reaction Status Date / Time Iodinated Contrast- Oral and Allergy Intermediate DIFFICULTY Verified 10/08/18 03:20 IV Dye BREATHING [Iodinated Contrast Media - Oral and] acetaminophen [ACETAMINOPHEN] Allergy Unknown HEADACHE Verified 10/08/18 03:20 cephalexin Allergy Unknown PT UNSURE Verified 10/08/18 03:20 OF REACTION ciprofloxacin Allergy Unknown PT UNSURE Verified 10/08/18 03:20 OF REACTION Travel Screening - Travel/Exposure Within Last 30 Days Have you traveled within the last 30 days?: No - Travel/Exposure Within Last Year Have you traveled outside the [place] in the last year?: No - Additonal Travel Details Have you been exposed to anyone with a communicable illness?: No - Travel Symptoms Symptom Screening: None Review of Systems Reviewed: No additional complaints except as noted below Constitutional: Reports: As per HPI. Denies: Chills, Fever, Malaise, Night sweats, Weakness, Weight change Eyes: Reports: As per HPI. Denies: Eye discharge, Eye pain, Photophobia, Vision change ENT: Reports: As per HPI. Denies: Congestion, Dental pain, Ear pain, Epistaxis, Hearing loss, Throat pain Respiratory: Reports: As per HPI. Denies: Cough, Dyspnea, Hemoptysis, Stridor, Wheezes Cardiovascular: Reports: As per HPI. Denies: Arrhythmia, Chest pain, Dyspnea on exertion, Edema, Murmurs, Orthopnea, Palpitations, Paroxysmal nocturnal dyspnea, Rheumatic Fever, Syncope Endocrine: Reports: As per HPI. Denies: Fatigue, Heat or cold intolerance, Polydipsia, Polyuria Gastrointestinal: Reports: As per HPI. Denies: Abdominal pain, Constipation, Diarrhea, Hematemesis, Hematochezia, Melena, Nausea, Vomiting Genitourinary: Reports: As per HPI. Denies: Abnormal menses, Discharge, Dyspareunia, Dysuria, Frequency, Hematuria, Incontinence, Retention, Urgency Musculoskeletal: Reports: As per HPI. Denies: Arthralgia, Back pain, Gout, Joint swelling, Myalgia, Neck pain Skin: Reports: As per HPI. Denies: Bruising, Change in color, Change in hair/nails, Lesions, Pruritus, Rash Neurological: Reports: As per HPI. Denies: Abnormal gait, Confusion, Headache, Numbness, Paresthesias, Seizure, Tingling, Tremors, Vertigo, Weakness Psychiatric: Reports: As per HPI. Denies: Anxiety, Auditory hallucinations, Depression, Homicidal thoughts, Suicidal thoughts, Visual hallucinations Hematological/Lymphatic: Reports: As per HPI. Denies: Anemia, Blood Clots, Easy bleeding, Easy bruising, Swollen glands Past Medical History - SOCIAL HISTORY Smoking Status: Never smoker Alcohol Use: None Drug Use: None - RESPIRATORY Hx Respiratory Disorders: Yes Hx Asthma: Yes (No medication) Hx Bronchitis: Yes Hx Pulmonary Embolism: No (Mother from [place]) Hx Sleep Apnea: Yes Comment:: Does not wish to use her CPAP while sick - CARDIOVASCULAR Hx Cardio Disorders: Yes Hx Hypertension: Yes - NEURO Hx Neuro Disorders: Yes Hx Brain Tumor: Yes (Dec 22, 1999) Hx Dizziness: Yes (takes Antivert as needed) Hx Neuropathy: No - GI Hx GI Disorders: Yes Hx Reflux: Yes - Hx Genitourinary Disorders: Yes Hx Bladder Problem: Yes Hx Kidney Stones: Yes Hx UTI: Yes Comment:: urgency - ENDOCRINE Hx Endocrine Disorders: Yes Hx Diabetes: Yes Hx Thyroid Disease: Yes - MUSCULOSKELETAL Hx Musculoskeletal Disorders: Yes Hx Gout: Yes - PSYCH Hx Psych Problems: Yes Hx Anxiety: Yes Hx Depression: Yes - HEMATOLOGY/ONCOLOGY Hx Hematology/Oncology Disorders: No Family Medical History Any Significant Family History?: No Hx Diabetes: Grandparents Hx HTN: Grandparents Hx Kidney Disease: Grandparents *Kidney Comment: Maternal Grandmother Hx Stroke: Mother, Grandparents Physical Exam - General General Appearance: Alert, Oriented x3, Cooperative, Mild distress - Head Head exam: Normal inspection - Eye Eye exam: Normal appearance, PERRL, EOMI Pupils: Normal accommodation - ENT ENT exam: Normal exam, Mucous membranes moist, Normal external ear exam, Normal orophraynx Ear exam: Normal external inspection. negative: External canal tenderness Nasal Exam: Normal inspection. negative: Discharge, Sinus tenderness Mouth exam: Normal external inspection, Tongue normal Teeth exam: Normal inspection. negative: Dental caries Throat exam: Normal inspection. negative: Tonsillar erythema, Tonsillar exudate - Neck Neck exam: Normal inspection, Full ROM. negative: Tenderness - Respiratory Respiratory exam: Normal lung sounds bilaterally. negative: Respiratory distress - Cardiovascular Cardiovascular Exam: Regular rate, Normal rhythm, Normal heart sounds - GI/Abdominal GI/Abdominal exam: Soft, Normal bowel sounds, Tenderness, Other (erythema w firm center, not flucuent. increasing erythema and dark area, palm size erythema w 50cent size black area) - Rectal Rectal exam: Deferred - exam: Deferred - Extremities Extremities exam: Normal inspection, Full ROM, Normal capillary refill. negative: Tenderness - Back Back exam: Reports: Normal inspection, Full ROM. Denies: Muscle spasm, Rash noted, Tenderness - Neurological Neurological exam: Alert, CN II-XII intact, Normal gait, Oriented X3 - Psychiatric Psychiatric exam: Normal affect, Normal mood - Skin Skin exam: Dry, Intact, Normal color, Warm Course Vital Signs 10/08/18 03:14 Temperature 97.9 F Pulse Rate [ 54 L Pulse Ox Probe] Respiratory 20 Rate Blood Pressure 172/73 [Left Arm] Pulse Ox 95 Disposition Disposition: Discharge Clinical Impression: Encounter for wound re-check Disposition: Home, Self-Care Condition: (1) Good Instructions: Cellulitis (ED) Additional Instructions: follow up with dr kern and dr lopez. return sooner if worse. moist heat. continue clindamycin Referrals: Miguel Lopez [DOCTOR OF OSTEOPATH] - [facility] Specialty Clinics [Provider Group] Forms: Patient Portal Access Quality - Quality Measures Quality Measures: N/A - Blood Pressure Screening Does Patient Have Any of the Following: Active Dx of HTN Blood Pressure Classification: Hypertensive Reading Systolic Measurement: 172 Diastolic Measurement: 73 Screening for High Blood Pressure: Patient Exclusion, Hx of HTN [G9744]
== END 2018-10-08 04:00 | disposition home or self-care (01) ==
LOC: ER 03:08
DX: L03.311 Cellulitis of abdominal wall (principal); Z48.00 Encounter for change or removal of nonsurgical wound dressing; I10 Essential (primary) hypertension; E11.9 Type 2 diabetes mellitus without complications
CPT/HCPCS: 99282; 99283

== ENCOUNTER 2018-10-22 08:33 | Day surgery (SDC) | payer MEDICARE ==
[~2018-10-22 08:33] MED LIST: CLINDAMYCIN 600MG/50ML PREMIX 600 MG/50 ML BAG IVPB ONE
[2018-10-22] MEDS ORDERED: EPHEDRINE SULFATE 50 MG/ML ML IV ONE (08:34)
[2018-10-22] MEDS ORDERED: LIDOCAINE 2% MDV (20MG/ML) 20ML VIAL IV ONE (08:34)
[2018-10-22] MEDS ORDERED: FENTANYL PF 100MCG/2ML VIAL IV ONE (08:34)
[2018-10-22] MEDS ORDERED: PROPOFOL 10 MG/ML VIAL IV ONE (08:34)
[2018-10-22] MEDS ORDERED: ONDANSETRON HCL IV 4 MG/2 ML VIAL IVP ONE (08:34)
[2018-10-22] MEDS ORDERED: SEVOFLURANE 250 ML INH ONE (08:34)
[2018-10-22] MEDS ORDERED: RINGERS SOLUTION,LACTATED 1,000 ML IV ONE ×2 (09:13)
[2018-10-22] MEDS ORDERED: DEXTROSE 50 % IVP 50 ML DISP.SYRIN IVP ONE (09:14)
[2018-10-22] MEDS ORDERED: BUPIVACAINE 0.25% W/EPI MPF 30ML VIAL SQ ONE (10:41)
[2018-10-22] MEDS ORDERED: TRAMADOL HCL 50 MG TABLET PO ONE (11:53)
--- NOTE | 2018-10-22 15:31 | Operative Note ---
DATE OF SURGERY: 10/22/2018 SURGEON: Miguel Lopez DO PREOPERATIVE DIAGNOSIS: Chronic abdominal wound. POSTOPERATIVE DIAGNOSIS: Chronic abdominal wound. OPERATION: Wide excision of chronic abdominal wall wound measuring 10 x 4 cm into the subcu. INDICATION: The patient is a 73-year-old female who has had a chronic wound in her pannus. This has undergone bedside debridement multiple times without complete healing. We did discuss wide excision. Risks, benefits, and alternatives were discussed. Risks include bleeding, infection, wound infection, recurrence. She understood this fully. Consent was signed and questions answered. PROCEDURE: The patient was taken to the operating room and placed in a supine position. Local and IV sedation given per the department of anesthesia. The patient's pannus was prepped and draped in the usual fashion. The area around the wound was anesthetized with a total of 10 mL of 0.25% Sensorcaine with epinephrine. A wide elliptical incision was made measuring 10 x 4 cm. This was carried down to the subcutaneous tissue with cautery. This wound was then fully excised and debrided. The wound was then irrigated and closed with 3-0 nylon. Some packing was placed to the stitches, which will be taken out in the clinic. The patient was taken to the recovery room in stable condition. AL[place]
== END 2018-10-22 12:25 | disposition home or self-care (01) ==
LOC: SUR 08:33
PROVIDERS: ATTEND Surgery
DX: L03.311 Cellulitis of abdominal wall (principal); E11.9 Type 2 diabetes mellitus without complications; Z79.4 Long term (current) use of insulin; G25.81 Restless legs syndrome; R60.9 Edema, unspecified; K21.9 Gastro-esophageal reflux disease without esophagitis; E03.9 Hypothyroidism, unspecified; G47.33 Obstructive sleep apnea (adult) (pediatric)
CPT/HCPCS: 36416; 82948; J2405; J7120

== ENCOUNTER 2019-02-09 08:58 | Emergency (ER) | payer MEDICARE ==
[2019-02-09] MEDS ORDERED: TOPICAL LIDOCAINE W/ EPI 5 ML TOP ONE (09:46)
[2019-02-09] MEDS ORDERED: LIDOCAINE VISC 2% 15ML SOLUTION MM ONE (09:46)
--- NOTE | 2019-02-09 11:19 | Emergency Department Record ---
History of Present Illness - General Chief complaint: ENT Stated complaint: BLOODY NOSE Time Seen by Provider: 02/09/19 09:36 Source: Patient Mode of Arrival: Wheelchair Limitations: No limitations - History of Present Illness Initial comments: pt had a nosebleed during the night that stopped 5 hours ago. she talked to nurseline and they told her to come to the ED immediately. complaint: Epistaxis Onset/Timin -: Hour(s) Location: Nose Consistency: Now resolved Improves with: None Worsens with: None Context-Epistaxis: Other (digital trauma) - Related Data Previous Rx's Medication Instructions Recorded Clindamycin HCl [Cleocin HCl] 300 mg PO QID #28 capsule 10/02/18 Tramadol HCl [Ultram] 50 mg PO Q6H #10 tab 10/02/18 Allergies Allergy/AdvReac Type Severity Reaction Status Date / Time Iodinated Contrast Media Allergy Intermediate DIFFICULTY Verified 02/09/19 09:02 [Iodinated Contrast Media - BREATHING Oral and] acetaminophen [ACETAMINOPHEN] Allergy Unknown HEADACHE Verified 02/09/19 09:02 cephalexin Allergy Unknown PT UNSURE Verified 02/09/19 09:02 OF REACTION ciprofloxacin Allergy Unknown PT UNSURE Verified 02/09/19 09:02 OF REACTION Travel Screening - Travel/Exposure Within Last 30 Days Have you traveled within the last 30 days?: No - Travel/Exposure Within Last Year Have you traveled outside the [place] in the last year?: No - Additonal Travel Details Have you been exposed to anyone with a communicable illness?: No - Travel Symptoms Symptom Screening: None Review of Systems Reviewed: No additional complaints except as noted below Constitutional: Reports: As per HPI. Denies: Chills, Fever, Malaise, Night sweats, Weakness, Weight change Eyes: Reports: As per HPI. Denies: Eye discharge, Eye pain, Photophobia, Vision change ENT: Reports: As per HPI. Denies: Congestion, Dental pain, Ear pain, Epistaxis, Hearing loss, Throat pain Respiratory: Reports: As per HPI. Denies: Cough, Dyspnea, Hemoptysis, Stridor, Wheezes Cardiovascular: Reports: As per HPI. Denies: Arrhythmia, Chest pain, Dyspnea on exertion, Edema, Murmurs, Orthopnea, Palpitations, Paroxysmal nocturnal dyspnea, Rheumatic Fever, Syncope Endocrine: Reports: As per HPI. Denies: Fatigue, Heat or cold intolerance, Polydipsia, Polyuria Gastrointestinal: Reports: As per HPI. Denies: Abdominal pain, Constipation, Diarrhea, Hematemesis, Hematochezia, Melena, Nausea, Vomiting Genitourinary: Reports: As per HPI. Denies: Abnormal menses, Discharge, Dyspareunia, Dysuria, Frequency, Hematuria, Incontinence, Retention, Urgency Musculoskeletal: Reports: As per HPI. Denies: Arthralgia, Back pain, Gout, Joint swelling, Myalgia, Neck pain Skin: Reports: As per HPI. Denies: Bruising, Change in color, Change in hair/nails, Lesions, Pruritus, Rash Neurological: Reports: As per HPI. Denies: Abnormal gait, Confusion, Headache, Numbness, Paresthesias, Seizure, Tingling, Tremors, Vertigo, Weakness Psychiatric: Reports: As per HPI. Denies: Anxiety, Auditory hallucinations, Depression, Homicidal thoughts, Suicidal thoughts, Visual hallucinations Hematological/Lymphatic: Reports: As per HPI. Denies: Anemia, Blood Clots, Easy bleeding, Easy bruising, Swollen glands Past Medical History - SOCIAL HISTORY Smoking Status: Never smoker Alcohol Use: None Drug Use: None - RESPIRATORY Hx Respiratory Disorders: Yes Hx Asthma: Yes (IN THE PAST WHEN SHE HAD BRONCHITIS) Hx Bronchitis: Yes (NOTHING RECENT) Hx Pulmonary Embolism: No (Mother from [place]) Hx Sleep Apnea: Yes Hx of CPAP: No (NOT USING AT THIS TIME) - CARDIOVASCULAR Hx Cardio Disorders: Yes Hx Cardiac Cath: Yes (20 PLUS YRS AGO) Hx Edema: Yes (MILD DEPENDENT EDEMA AT TIMES) Hx Hypertension: Yes (ON MEDS WITH GOOD CONTROL) - NEURO Hx Neuro Disorders: Yes Hx Brain Tumor: Yes (Dec 22, 1999) Hx Dizziness: Yes (2-3 X'S A WEEK VERTIGO) Hx Neuropathy: No - GI Hx GI Disorders: Yes Hx Reflux: Yes (CONTROLLED WITH MEDS) - Hx Genitourinary Disorders: Yes Hx Bladder Problem: Yes (URGENCY) Hx Kidney Stones: Yes (NOTHING RECENT) Hx UTI: Yes (HX OF) - ENDOCRINE Hx Endocrine Disorders: Yes Hx Diabetes: Yes (DX'D 1991) Hx Thyroid Disease: Yes (ON MEDS) Comment:: BLOOD SUGARS TEND TO RUN A LITTLE LOW. - MUSCULOSKELETAL Hx Musculoskeletal Disorders: Yes Hx Arthritis: Yes Hx Fibromyalgia: Yes (POSSIBLY) Hx Gout: Yes (ON MEDS) Hx Osteoporosis: Yes - PSYCH Hx Psych Problems: Yes Hx Anxiety: Yes Hx Depression: Yes - HEMATOLOGY/ONCOLOGY Hx Hematology/Oncology Disorders: No Hx Blood Transfusions: No Family Medical History Any Significant Family History?: No Hx Diabetes: Grandparents Hx HTN: Grandparents Hx Kidney Disease: Grandparents *Kidney Comment: Maternal Grandmother Hx Stroke: Mother, Grandparents Physical Exam - General General Appearance: Alert, Oriented x3, Cooperative, Mild distress - Head Head exam: Normal inspection - Eye Eye exam: Normal appearance, PERRL, EOMI Pupils: Normal accommodation - ENT ENT exam: Normal exam, Mucous membranes moist, Normal external ear exam, Normal orophraynx, TM's normal bilaterally Ear exam: Normal external inspection. negative: External canal tenderness Nasal Exam: Dried blood. negative: Discharge, Sinus tenderness Mouth exam: Normal external inspection, Tongue normal Teeth exam: Normal inspection. negative: Dental caries Throat exam: Normal inspection. negative: Tonsillar erythema, Tonsillar exudate - Neck Neck exam: Normal inspection, Full ROM. negative: Tenderness - Respiratory Respiratory exam: Normal lung sounds bilaterally. negative: Respiratory distress - Cardiovascular Cardiovascular Exam: Regular rate, Normal rhythm, Normal heart sounds - GI/Abdominal GI/Abdominal exam: Soft, Normal bowel sounds. negative: Tenderness - Rectal Rectal exam: Deferred - exam: Deferred - Extremities Extremities exam: Normal inspection, Full ROM, Normal capillary refill. negative: Tenderness - Back Back exam: Reports: Normal inspection, Full ROM. Denies: Muscle spasm, Rash noted, Tenderness - Neurological Neurological exam: Alert, CN II-XII intact, Normal gait, Oriented X3 - Psychiatric Psychiatric exam: Normal affect, Normal mood - Skin Skin exam: Dry, Intact, Normal color, Warm Course Vital Signs 02/09/19 02/09/19 09:05 10:23 Temperature 97.7 F Pulse Rate 55 L Pulse Rate [ 52 L Right] Respiratory 20 18 Rate Blood Pressure 112/50 Blood Pressure 187/88 [Left Arm] Pulse Ox 96 98 Disposition Disposition: Discharge Clinical Impression: Anterior epistaxis Disposition: Home, Self-Care Condition: (1) Good Instructions: Nosebleed (ED) Additional Instructions: follow up with ENT doctor. return sooner if worse. no blowing or picking nose. avoid sneezing Referrals: Cody Schwartz D.O. [DOCTOR OF OSTEOPATH] - Quality - Quality Measures Quality Measures: N/A - Blood Pressure Screening Does Patient Have Any of the Following: No Blood Pressure Classification: Normal BP Reading Systolic Measurement: 112 Diastolic Measurement: 50 Screening for High Blood Pressure: < Normal BP, F/U Not Required > [G8783]
== END 2019-02-09 11:31 | disposition home or self-care (01) ==
LOC: ER 08:58
DX: R04.0 Epistaxis (principal)
CPT/HCPCS: 99283